=== PATIENT | female | born 1945 | race Caucasian/White ===

== ENCOUNTER 2021-08-03 15:23 | Emergency (ER) | payer MEDICARE ==
[2021-08-03 15:36] VITALS: BP 164/90
--- NOTE | 2021-08-03 17:53 | Emergency Department Report ---
ED General Adult HPI - General Chief complaint: Pain General Stated complaint: PAIN ALL OVER BODY Time Seen by Provider: 08/03/21 17:13 Source: patient Mode of arrival: Stretcher Limitations: No Limitations - History of Present Illness Initial comments: Patient is 75-year-old female presents emergency room with complaints of an acute exacerbation of her chronic pain that began approximately 3 days ago. She states that she sees a pain specialist and is prescribed oxycodone. She states that the pain has been going from her bilateral shoulders and shooting down her bilateral arms and having pain shooting down her bilateral legs. She denies any fall or injury. She denies any fever, nausea, vomiting, diarrhea, numbness, weakness, speech disturbance, gait disturbance, vision changes, chest pain, shortness of breath. Patient has a past medical history of diabetes, she states that her sugars not well controlled. She denies any known history of neuropathy and states that she is not currently on any neuropathy medication. She has an allergy to penicillin. Severity scale (0 -10): 10 - Related Data Previous Rx's Medication Instructions Recorded Last Taken Type levoFLOXacin [Levaquin TAB] 500 mg PO ONCE 10 Days #10 tablet 09/20/18 Unknown Rx traMADoL [Ultram] 50 mg PO Q4HR PRN #12 tablet 09/20/18 Unknown Rx Gabapentin 100 mg PO Q8HR #21 capsule 08/03/21 Unknown Rx Allergies Allergy/AdvReac Type Severity Reaction Status Date / Time Penicillins Allergy Unknown Verified 09/19/18 23:06 ED Review of Systems ROS: Stated complaint: PAIN ALL OVER BODY Other details as noted in HPI Comment: All other systems reviewed and negative ED Past Medical Hx - Past Medical History Hx Hypertension: Yes Hx Diabetes: Yes Hx Asthma: Yes Additional medical history: CAD - Surgical History Hx Coronary Stent: Yes (X3) Additional Surgical History: Coloscopy - Social History Smoking Status: Never Smoker Substance Use Type: None - Medications Home Medications: Home Medications Medication Instructions Recorded Confirmed Last Taken Type levoFLOXacin [Levaquin TAB] 500 mg PO ONCE 10 Days #10 tablet 09/20/18 Unknown Rx traMADoL [Ultram] 50 mg PO Q4HR PRN #12 tablet 09/20/18 Unknown Rx Gabapentin 100 mg PO Q8HR #21 capsule 08/03/21 Unknown Rx ED Physical Exam - General Limitations: No Limitations General appearance: alert, in no apparent distress - Head Head exam: Present: atraumatic, normocephalic - Eye Eye exam: Present: normal appearance - ENT ENT exam: Present: mucous membranes moist - Respiratory Respiratory exam: Present: normal lung sounds bilaterally. Absent: respiratory distress, wheezes, rales, rhonchi, stridor, chest wall tenderness, accessory muscle use, decreased breath sounds, prolonged expiratory - Cardiovascular Cardiovascular Exam: Present: regular rate, normal rhythm, normal heart sounds. Absent: systolic murmur, diastolic murmur, rubs, gallop - Extremities Exam Extremities exam: Present: normal inspection, full ROM, normal capillary refill, other (neurovascularly intact with strong distal pulses). Absent: tenderness, pedal edema, joint swelling, calf tenderness - Neurological Exam Neurological exam: Present: alert, oriented X3, CN II-XII intact, normal gait. Absent: motor sensory deficit - Psychiatric Psychiatric exam: Present: normal affect, normal mood - Skin Skin exam: Present: warm, dry, intact ED Course Vital Signs 08/03/21 08/03/21 15:25 18:55 Temperature 98.5 F Pulse Rate 94 H Respiratory 16 16 Rate Blood Pressure 164/90 [Left] O2 Sat by Pulse 97 Oximetry ED Medical Decision Making - Lab Data Result diagrams: 08/03/21 17:39 08/03/21 17:39 - Medical Decision Making Patient is 75-year-old female presents emergency room with complaints of an acute exacerbation of her chronic pain that began approximately 3 days ago. She states that she sees a pain specialist and is prescribed oxycodone. She states that the pain has been going from her bilateral shoulders and shooting down her bilateral arms and having pain shooting down her bilateral legs. She denies any fall or injury. She denies any fever, nausea, vomiting, diarrhea, numbness, weakness, speech disturbance, gait disturbance, vision changes, chest pain, shortness of breath. Patient has a past medical history of diabetes, she states that her sugars not well controlled. She denies any known history of neuro brendon and states that she is not currently on any neuropathy medication. She has an allergy to penicillin. Vitals are stable. Patient has no joint swelling, no skin changes, neurovascularly intact. There are no signs of any infection or septic joint. Labs show evidence of CKD, baseline labs in 2018 she already had evidence of CKD, it is likely worsening, patient will be referred to nephrology. Labs also show hyperglycemia with blood glucose of 253, discussed the importance of outpatient primary care follow-up for better glycemic control. Symptoms could likely be related to neuropathy. Patient given medications on the emergency room with improvement of her symptoms. Patient given short course of gabapentin. Discussed the importance of outpatient follow-up. Discussed return precautions. Advised patient Please take medication as prescribed. Follow-up with your primary care doctor. Follow-up with your pain specialist. Follow-up with your mandarin speaking nanny. Return to emergency room for any new or worsening symptoms. Critical care attestation.: If time is entered above; I have spent that time in minutes in the direct care of this critically ill patient, excluding procedure time. ED Disposition Clinical Impression: Generalized pain, Hyperglycemia CKD (chronic kidney disease) Qualifiers: Chronic kidney disease stage: unspecified stage Qualified Code(s): N18.9 - Chronic kidney disease, unspecified Disposition: 01 HOME / SELF CARE / HOMELESS Is pt being admited?: No Does the pt Need Aspirin: No Condition: Stable Instructions: Diabetic Neuropathy Additional Instructions: Please take medication as prescribed. Follow-up with your primary care doctor. Follow-up with your pain specialist. Follow-up with your mandarin speaking nanny. Return to emergency room for any new or worsening symptoms. Prescriptions: Gabapentin 100 mg PO Q8HR #21 capsule Referrals: PRIMARY CARE, [Primary Care Provider] - 2-3 Days your, pain specialist [Other] - 2-3 Days TOMMY BILLINGS MD [Staff Physician] - 2-3 Days Time of Disposition: 19:38 Print Language: COLOMBIAN
[2021-08-03 18:03] LABS: Basophils # (Auto) 0.1 K/mm3 (0.0-0.1); Basophils % (Auto) 0.9 % (0.0-1.8); Eosinophils # (Auto) 0.2 K/mm3 (0.0-0.4); Hematocrit 40.7 % (30.3-42.9); Hemoglobin 12.7 gm/dl (10.1-14.3); Lymphocytes # (Auto) 2.8 K/mm3 (1.2-5.4); Lymphocytes % (Auto) 24.1 % (13.4-35.0); Mean Corpuscular HGB Conc 31 % (30-34); Mean Corpuscular Volume 71 fl (79-97); Monocytes # (Auto) 0.9 K/mm3 (0.0-0.8); Monocytes % (Auto) 7.5 % (0.0-7.3); Platelet Count 193 K/mm3 (140-440); Red Blood Count 5.77 M/mm3 (3.65-5.03); Red Cell Distribution Width 17.3 % (13.2-15.2)
[2021-08-03 18:29] LABS: Albumin 3.9 g/dL (3.9-5); Calcium 9.8 mg/dL (8.4-10.2)
[2021-08-03] MEDS ORDERED: GABAPENTIN 100 MG CAP PO ONE (18:33)
[2021-08-03] MEDS ORDERED: oxyCODONE /ACETAMINOPHEN 5-325MG TAB PO ONE (18:33)
== END 2021-08-03 23:30 | disposition home or self-care (01) ==
LOC: ED 15:23
DX: E11.65 Type 2 diabetes mellitus with hyperglycemia (principal); I12.9 Hypertensive chronic kidney disease with stage 1 through stage 4 chronic kidney disease, or unspecified chronic kidney disease; E11.22 Type 2 diabetes mellitus with diabetic chronic kidney disease; N18.9 Chronic kidney disease, unspecified; I10 Essential (primary) hypertension; J45.909 Unspecified asthma, uncomplicated; Z88.0 Allergy status to penicillin; Z79.899 Other long term (current) drug therapy
CPT/HCPCS: 36415; 80053; 82805; 85025; 99283

== ENCOUNTER 2021-08-13 15:43 | Emergency (ER) | payer MEDICARE ==
[2021-08-13] MEDS ORDERED: HYDROmorphone 1 MG/1 ML INJ IV ONE ×2 (16:44→19:02)
[2021-08-13] MEDS ORDERED: ONDANSETRON 4 MG/2 ML INJ IV ONE (16:44)
--- NOTE | 2021-08-13 16:53 | Emergency Department Report ---
HPI - General Chief Complaint: Pain General Time Seen by Provider: 08/13/21 16:19 - HPI HPI: This is a 76-year-old female presents to the emergency department with a complaint of generalized pain for the past 4 to 5 days. She has a past medical history of coronary artery disease, pulmonary hypertension, major depressive disorder, homocystinemia, diabetes, peripheral neuropathy, peripheral vascular disease, chronic kidney disease stage III. Patient also appears to have issues with chronic pain. Patient does follow with a pain specialist whom she c ontacted and was told to continue with gabapentin, but the patient says that it is not working. The patient also takes oxycodone 10 mg up to 4 times per day. She denies any fever, shortness of breath, lower extremity swelling, nausea, vomiting. Overall the patient says "I just do not feel well." ED Past Medical Hx - Past Medical History Hx Hypertension: Yes Hx Diabetes: Yes Hx Asthma: Yes Additional medical history: CAD - Surgical History Hx Coronary Stent: Yes (X3) Additional Surgical History: Coloscopy - Social History Smoking Status: Never Smoker Substance Use Type: None - Medications Home Medications: Home Medications Medication Instructions Recorded Confirmed Last Taken Type levoFLOXacin [Levaquin TAB] 500 mg PO ONCE 10 Days #10 tablet 09/20/18 Unknown Rx traMADoL [Ultram] 50 mg PO Q4HR PRN #12 tablet 09/20/18 Unknown Rx Gabapentin 100 mg PO Q8HR #21 capsule 08/03/21 Unknown Rx ED Review of Systems ROS: Stated complaint: BODY PAIN Other details as noted in HPI Comment: All other systems reviewed and negative Constitutional: denies: chills, fever Eyes: denies: eye pain, vision change ENT: denies: ear pain, throat pain Respiratory: denies: cough, shortness of breath Cardiovascular: denies: chest pain, palpitations Gastrointestinal: denies: abdominal pain, vomiting Genitourinary: denies: dysuria, discharge Musculoskeletal: back pain, myalgia. denies: joint swelling Skin: denies: rash, lesions Neurological: denies: headache, weakness Physical Exam - Physical Exam Vital Signs: Vital Signs 08/13/21 15:50 Temperature 97.9 F Pulse Rate 72 Respiratory 18 Rate Blood Pressure 176/91 [Left] O2 Sat by Pulse 98 Oximetry Physical Exam: GENERAL: The patient is well-developed well-nourished. HENT: Normocephalic. Atraumatic. Patient has moist mucous membranes. EYES: Extraocular motions are intact. NECK: Supple. Trachea is midline. CHEST/LUNGS: Clear to auscultation. There is no respiratory distress noted. HEART/CARDIOVASCULAR: Regular. There is no tachycardia. There is no murmur. ABDOMEN: Abdomen is soft, nontender. Patient has normal bowel sounds. SKIN: Skin is warm and dry. NEURO: The patient is awake, alert, and oriented. The patient is cooperative. The patient has no focal neurologic deficits. Normal speech. MUSCULOSKELETAL: There is tenderness to palpation along all extremities but no obvious deformity. There is no limitation range of motion. BACK: No midline thoracic or lumbar tenderness to palpation. There is reproducible lumbar and thoracic paraspinal tenderness to palpation bilaterally. ED Course Vital Signs 08/13/21 15:50 Temperature 97.9 F Pulse Rate 72 Respiratory 18 Rate Blood Pressure 176/91 [Left] O2 Sat by Pulse 98 Oximetry ED Medical Decision Making - Lab Data Result diagrams: 08/13/21 17:04 08/13/21 17:04 Lab Results 08/13/21 08/13/21 Range/Units 17:04 17:04 WBC 8.2 (4.5-11.0) K/mm3 RBC 5.57 H (3.65-5.03) M/mm3 Hgb 12.4 (10.1-14.3) gm/dl Hct 40.1 (30.3-42.9) % MCV 72 L (79-97) fl MCH 22 L (28-32) pg MCHC 31 (30-34) % RDW 17.6 H (13.2-15.2) % Plt Count 195 (140-440) K/mm3 Lymph % (Auto) 24.9 (13.4-35.0) % Pope % (Auto) 7.6 H (0.0-7.3) % Eos % (Auto) 1.6 (0.0-4.3) % Baso % (Auto) 0.6 (0.0-1.8) % Lymph # (Auto) 2.0 (1.2-5.4) K/mm3 Pope # (Auto) 0.6 (0.0-0.8) K/mm3 Eos # (Auto) 0.1 (0.0-0.4) K/mm3 Baso # (Auto) 0.0 (0.0-0.1) K/mm3 Seg Neutrophils % 65.3 (40.0-70.0) % Seg Neutrophils # 5.4 (1.8-7.7) K/mm3 Sodium 140 (137-145) mmol/L Potassium 4.2 (3.6-5.0) mmol/L Chloride 106.7 (98-107) mmol/L Carbon Dioxide 22 (22-30) mmol/L Anion Gap 16 mmol/L BUN 24 H (7-17) mg/dL Creatinine 1.0 (0.6-1.2) mg/dL Estimated GFR 54 ml/min BUN/Creatinine Ratio 24 % Glucose 197 H (65-100) mg/dL Calcium 9.8 (8.4-10.2) mg/dL Total Bilirubin 0.30 (0.1-1.2) mg/dL AST 18 (5-40) units/L ALT 14 (7-56) units/L Alkaline Phosphatase 101 (35-129) units/L Total Creatine Kinase 339 H (30-135) units/L Total Protein 6.7 (6.3-8.2) g/dL Albumin 3.6 L (3.9-5) g/dL Albumin/Globulin Ratio 1.2 % - Medical Decision Making This patient presents to the emergency department with a complaint of generalized pain that is refractory to her home medications which includes gabapentin and Percocet. Heart and lung sounds are normal to auscultation. The patient does not appear in any respiratory or acute distress. There is some reproducible pain along the extremities and along the back but no obvious deformities. Labs have been mostly unremarkable including CBC, metabolic panel, normal thyroid function, no evidence of rhabdomyolysis. There is some mild renal insufficiency which is greatly improved from the previously diagnosed CKD stage III. Patient was given 2 doses of IV analgesia with some improvement. The patient has good outpatient follow-up with primary care and is being seen by a pain management physician and on gabapentin and oxycodone. The patient was ambulatory in the emergency department and both appears and feels stable. Vital signs reassuring including being afebrile. She will follow up with her physicians outpatient and will return to the ER with any worsening of her symptoms or with any acute distress. Critical Care Time: No Critical care attestation.: If time is entered above; I have spent that time in minutes in the direct care of this critically ill patient, excluding procedure time. ED Disposition Clinical Impression: Generalized pain, Hypertension, Renal insufficiency, mild Disposition: 01 HOME / SELF CARE / HOMELESS Is pt being admited?: No Condition: Stable Instructions: Peripheral Neuropathy, Musculoskeletal Pain, Hypertension, Adult, Hypertension (ED) Additional Instructions: Please follow-up with your primary care physician and pain management physician in the next few days. Take all medications as prescribed. Try to stay away from foods that are high in salt and caffeinated products. Keep a blood pressure log. Return to the emergency department with any worsening of your symptoms, new or concerning symptoms not addressed during this current emergency department vi sit, or with any acute distress. Referrals: ADELINA BOWLES MD [Primary Care Provider] - 2-3 Days Time of Disposition: 20:06
[2021-08-13 17:20] LABS: Basophils % (Auto) 0.6 % (0.0-1.8); Eosinophils # (Auto) 0.1 K/mm3 (0.0-0.4); Eosinophils % (Auto) 1.6 % (0.0-4.3); Hematocrit 40.1 % (30.3-42.9); Hemoglobin 12.4 gm/dl (10.1-14.3); Lymphocytes % (Auto) 24.9 % (13.4-35.0); Mean Corpuscular HGB Conc 31 % (30-34); Mean Corpuscular Volume 72 fl (79-97); Monocytes # (Auto) 0.6 K/mm3 (0.0-0.8); Monocytes % (Auto) 7.6 % (0.0-7.3); Platelet Count 195 K/mm3 (140-440); Red Blood Count 5.57 M/mm3 (3.65-5.03); Red Cell Distribution Width 17.6 % (13.2-15.2)
[2021-08-13 17:38] LABS: Albumin 3.6 g/dL (3.9-5); Calcium 9.8 mg/dL (8.4-10.2)
[2021-08-13 20:24] VITALS: BP 114/47
== END 2021-08-13 20:15 | disposition home or self-care (01) ==
LOC: ED 15:43
DX: M79.18 Myalgia, other site (principal); I10 Essential (primary) hypertension; E11.9 Type 2 diabetes mellitus without complications; I25.10 Atherosclerotic heart disease of native coronary artery without angina pectoris; N28.9 Disorder of kidney and ureter, unspecified
CPT/HCPCS: 36415; 80053; 82550; 85025; 96374; 96375; 96376; 99284; J1170; J2405

== ENCOUNTER 2022-05-19 21:09 | Inpatient (IN) | payer MEDICARE ==
[2022-05-19] MEDS ORDERED: NITROGLYCERIN 0.4 MG TAB SUBL SL ONE (22:12)
[2022-05-19] MEDS ORDERED: ONDANSETRON 4 MG/2 ML INJ IV ONE (22:13)
[2022-05-19] MEDS ORDERED: MORPHINE 4 MG/1 ML INJ IV ONE (22:13)
[2022-05-19] MEDS ORDERED: PANTOPRAZOLE 40 MG INJ IV ONE (22:13)
--- NOTE | 2022-05-19 22:22 | Emergency Department Report ---
ED Chest Pain HPI - General Chief Complaint: Chest Pain Stated Complaint: CHEST PAIN Time Seen by Provider: 05/19/22 22:10 Source: patient, EMS (Verbal report received from emergency medical services. EMS documentation not available at time of chart dictation ), RN notes reviewed Mode of arrival: Stretcher Limitations: No Limitations - History of Present Illness Initial Comments: The patient was evaluated in the emergency department for symptoms described in the history of present illness. He/she was evaluated in the context of the global COVID-19 pandemic, which necessitated consideration that the patient might be at risk for infection with the virus that causes COVID-19. Institutional protocols and algorithms that pertain to the evaluation of patients at risk for COVID-19 are in a state of rapid change based on information released by regulatory bodies including the CDC and federal and state organizations. These policies and algorithms were followed during the patient's care in the emergency department. Please note that these policies, procedures and recommendations changed on a rapid basis. This is a pleasant and cooperative 76-year-old female, with a history of diabetes, hypertension, coronary artery disease and multiple stents. She is brought to the hospital by emergency medical services. The patient complains of central chest pain and simultaneous back pain. She denies vomiting and diaphoresis. She denies exertional shortness of breath. She denies travel, surgery, immobilization, DVT and pulmonary embolism risk factors. EMS reports that patient is hypertensive in the field. They report her initial blood pres sure exceeded 200 mmHg systolic. EMS also reports that they gave aspirin nitroglycerin in the field, with improvement in symptoms, and improvement in blood pressure, repeat blood pressure 130 mmHg systolic. Patient still has mild smoldering chest pain at this time. Her last stress test was in 2016. 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 Complaint: chest pain -: Sudden Onset: during rest Pain Location: substernal, left chest Pain Radiation: back Severity: moderate Quality: aching Consistency: intermittent Improves With: nitroglycerin, medication-other Worsens With: nothing Aspirin use within the Past 7 Days: (1) Yes - Related Data On Oral Contraceptives: No Previous Rx's Medication Instructions Recorded Last Taken Type levoFLOXacin [Levaquin TAB] 500 mg PO ONCE 10 Days #10 tablet 09/20/18 Unknown Rx traMADoL [Ultram] 50 mg PO Q4HR PRN #12 tablet 09/20/18 Unknown Rx Gabapentin 100 mg PO Q8HR #21 capsule 08/03/21 Unknown Rx Allergies Allergy/AdvReac Type Severity Reaction Status Date / Time Penicillins Allergy Unknown Verified 09/19/18 23:06 Heart Score - HEART Score History: Moderately suspicious EKG: Non-specific Age: > 65 Risk factors: > 3 risk factors or hx of atherosclerotic disease Troponin: 1-3x normal limit HEART Score: 7 - EKG Read Time Time EKG Completed: 22:57 EKG Read Time: 23:00 - Critical Actions Critical Actions: >7 pts:50-65% risk of adverse cardiac event. Early invasive measures ED Review of Systems ROS: Stated complaint: CHEST PAIN Other details as noted in HPI Constitutional: denies: fever Eyes: denies: eye discharge ENT: denies: epistaxis Respiratory: denies: cough Cardiovascular: chest pain Gastrointestinal: denies: abdominal pain, hematemesis, melena, hematochezia Musculoskeletal: back pain Psychiatric: anxiety Hematological/Lymphatic: denies: easy bleeding ED Past Medical Hx - Past Medical History Hx Hypertension: Yes Hx Diabetes: Yes Hx Asthma: Yes Additional medical history: CAD - Surgical History Hx Coronary Stent: Yes (X3) Additional Surgical History: Coloscopy - Social History Smoking Status: Never Smoker Substance Use Type: None - Medications Home Medications: Home Medications Medication Instructions Recorded Confirmed Last Taken Type levoFLOXacin [Levaquin TAB] 500 mg PO ONCE 10 Days #10 tablet 09/20/18 Unknown Rx traMADoL [Ultram] 50 mg PO Q4HR PRN #12 tablet 09/20/18 Unknown Rx Gabapentin 100 mg PO Q8HR #21 capsule 08/03/21 Unknown Rx ED Physical Exam - General Limitations: No Limitations General appearance: alert, obese - Head Head exam: Present: atraumatic, normocephalic - Eye Eye exam: Present: normal appearance, EOMI. Absent: nystagmus - ENT ENT exam: Present: normal exam, normal orophraynx, mucous membranes moist, normal external ear exam - Neck Neck exam: Present: normal inspection, full ROM. Absent: tenderness, meningismus - Respiratory Respiratory exam: Present: normal lung sounds bilaterally, chest wall tenderness. Absent: respiratory distress, wheezes, rales, rhonchi, stridor - Cardiovascular Cardiovascular Exam: Present: regular rate, normal rhythm, normal heart sounds. Absent: bradycardia, tachycardia, irregular rhythm, systolic murmur, diastolic murmur, rubs, gallop - GI/Abdominal GI/Abdominal exam: Present: soft. Absent: distended, tenderness, guarding, rebound, rigid, pulsatile mass - Extremities Exam Extremities exam: Present: normal inspection, full ROM, other (2+ pulses noted in the bilateral upper and lower extremities. There is no palpable cord. negative Homans sign. Muscular compartments are soft. The pelvis is stable.). Absent: joint swelling, calf tenderness - Back Exam Back exam: Present: normal inspection, muscle spasm. Absent: tenderness, CVA tenderness (R), paraspinal tenderness, vertebral tenderness - Neurological Exam Neurological exam: Present: alert, oriented X3, other (No facial droop. Tongue midline. Extraocular movements intact bilaterally. Facial sensation intact to light touch in V1, V2, V3 distribution bilaterally. 5 and a 5 strength in 4 extremities. Sensation intact to light touch in 4 extremities.) - Psychiatric Psychiatric exam: Present: normal affect, normal mood - Skin Skin exam: Present: warm, dry, intact, normal color. Absent: rash ED Course Vital Signs 05/19/22 05/19/22 21:09 22:25 Temperature 98 F Pulse Rate 90 88 Respiratory 18 18 Rate Blood Pressure 131/68 136/78 [Left] O2 Sat by Pulse 100 100 Oximetry - Reevaluation(s) Reevaluation #1: 05/19/22 22:26 Differential diagnosis, including but not limited to: GERD, gastritis, hiatal hernia, pneumonia, costochondritis, acute coronary syndrome, pulmonary embolism Assessment and plan: 76-year-old female, who is moderate to high risk by heart score for major adverse cardiac event, with acute chest pain and simultaneous back pain, which is now improved. Blood pressure currently 130s, patient still has mild pain. Prehospital EKG not consistent with STEMI. I have verbally ordered EMS to administer 2 mg of morphine to patient for pain control. Request appropriate laboratory studies, ER EKG, x-ray of the chest, D-dimer, and CT angiogram chest. Reassess after initial data points. We will recommend admission to the medical service for acute chest pain and accelerated cardiac risk stratification. I discussed this plan of care with the patient. She is agreeable to the plan of care. 05/20/22 01:14 Laboratory studies reviewed and appreciated. Blood pressure acceptable. Patient reports that she is 265 pounds, this translates to 120 kg. CTA chest grossly negative for PE. Not currently tachycardic, tachypneic or hypoxic. Do not have high suspicion for pulmonary embolism at this time. No contraindications to Lovenox for systemic anticoagulation. Discussed this with the patient. She articulates understanding. Hospital physician, Dr. Renner to admit to [facility] CÉSAR score - César Score Age > 65: (1) Yes Aspirin use within the Past 7 Days: (1) Yes 3 or more CAD Risk Factors: (1) Yes 2 or more Angina events in past 24 hrs: (1) Yes Known CAD with more than 50% Stenosis: (1) Yes Elevated Cardiac Markers: (1) Yes ST Deviation Greater than 0.5mm: (0) No CÉSAR Score: 6 ED Medical Decision Making - Lab Data Result diagrams: 05/19/22 22:23 05/19/22 22:23 Vital Signs 05/19/22 05/19/22 21:09 22:25 Temperature 98 F Pulse Rate 90 88 Respiratory 18 18 Rate Blood Pressure 131/68 136/78 [Left] O2 Sat by Pulse 100 100 Oximetry Lab Results 05/19/22 05/19/22 05/19/22 Range/Units 22:23 22:23 22:23 WBC 10.7 (4.5-11.0) K/mm3 RBC 5.86 H (3.65-5.03) M/mm3 Hgb 13.1 (10.1-14.3) gm/dl Hct 41.5 (30.3-42.9) % MCV 71 L (79-97) fl MCH 22 L (28-32) pg MCHC 32 (30-34) % RDW 16.5 H (13.2-15.2) % Plt Count 259 (140-440) K/mm3 Lymph % (Auto) 17.0 (13.4-35.0) % [place] % (Auto) 7.2 (0.0-7.3) % Eos % (Auto) 1.9 (0.0-4.3) % Baso % (Auto) 2.3 H (0.0-1.8) % Lymph # (Auto) 1.8 (1.2-5.4) K/mm3 [place] # (Auto) 0.8 (0.0-0.8) K/mm3 Eos # (Auto) 0.2 (0.0-0.4) K/mm3 Baso # (Auto) 0.2 H (0.0-0.1) K/mm3 Seg Neutrophils % 71.6 H (40.0-70.0) % Seg Neutrophils # 7.7 (1.8-7.7) K/mm3 PT 13.7 (12.2-14.9) Sec. INR 0.95 (0.87-1.13) APTT 29.0 (24.2-36.6) Sec. D-Dimer 532.06 H (0-234) ng/mlDDU Sodium 142 (137-145) mmol/L Potassium 4.7 (3.6-5.0) mmol/L Chloride 101.7 (98-107) mmol/L Carbon Dioxide 31 H (22-30) mmol/L Anion Gap 14 mmol/L BUN 21 H (7-17) mg/dL Creatinine 1.2 (0.6-1.2) mg/dL Estimated GFR 44 ml/min BUN/Creatinine Ratio 18 % Glucose 210 H (65-100) mg/dL Calcium 10.4 H (8.4-10.2) mg/dL Magnesium (1.7-2.3) mg/dL Total Bilirubin 0.20 (0.1-1.2) mg/dL AST 31 (5-40) units/L ALT 45 (7-56) units/L Alkaline Phosphatase 144 H (35-129) units/L Total Creatine Kinase (30-135) units/L Troponin T 0.044 H (0.00-0.029) ng/mL Total Protein 6.6 (6.3-8.2) g/dL Albumin 4.1 (3.9-5) g/dL Albumin/Globulin Ratio 1.6 % Triglycerides 153 H (2-149) mg/dL Cholesterol 230 H (50-199) mg/dL LDL Cholesterol Direct 157 H (50-130) mg/dL HDL Cholesterol 45 (40-59) mg/dL Cholesterol/HDL Ratio 5.11 % // Range/Units 22:23 WBC (4.5-11.0) K/mm3 RBC (3.65-5.03) M/mm3 Hgb (10.1-14.3) gm/dl Hct (30.3-42.9) % MCV (79-97) fl MCH (28-32) pg MCHC (30-34) % RDW (13.2-15.2) % Plt Count (140-440) K/mm3 Lymph % (Auto) (13.4-35.0) % [place] % (Auto) (0.0-7.3) % Eos % (Auto) (0.0-4.3) % Baso % (Auto) (0.0-1.8) % Lymph # (Auto) (1.2-5.4) K/mm3 [place] # (Auto) (0.0-0.8) K/mm3 Eos # (Auto) (0.0-0.4) K/mm3 Baso # (Auto) (0.0-0.1) K/mm3 Seg Neutrophils % (40.0-70.0) % Seg Neutrophils # (1.8-7.7) K/mm3 PT (12.2-14.9) Sec. INR (0.87-1.13) APTT (24.2-36.6) Sec. D-Dimer (0-234) ng/mlDDU Sodium (137-145) mmol/L Potassium (3.6-5.0) mmol/L Chloride (98-107) mmol/L Carbon Dioxide (22-30) mmol/L Anion Gap mmol/L BUN (7-17) mg/dL Creatinine (0.6-1.2) mg/dL Estimated GFR ml/min BUN/Creatinine Ratio % Glucose (65-100) mg/dL Calcium (8.4-10.2) mg/dL Magnesium 1.90 (1.7-2.3) mg/dL Total Bilirubin (0.1-1.2) mg/dL AST (5-40) units/L ALT (7-56) units/L Alkaline Phosphatase (35-129) units/L Total Creatine Kinase 108 (30-135) units/L Troponin T (0.00-0.029) ng/mL Total Protein (6.3-8.2) g/dL Albumin (3.9-5) g/dL Albumin/Globulin Ratio % Triglycerides (2-149) mg/dL Cholesterol (50-199) mg/dL LDL Cholesterol Direct (50-130) mg/dL HDL Cholesterol (40-59) mg/dL Cholesterol/HDL Ratio % - EKG Data -: EKG Interpreted by Me EKG shows normal: sinus rhythm Rate: normal - EKG Data 05/19/22 22:26 Prehospital EKG is interpreted by myself at 22: 26 This is a sinus rhythm, with a rate of approximately 85 bpm. Leftward axis deviation, left anterior fascicular block, motion artifact, QTC 3 8 9 ms. This is an abnormal EKG. This is not a STEMI. 05/19/22 23:36 The ER EKG is interpreted at 23: 00 Sinus rhythm, with a rate of 71 bpm. Left axis deviation, left anterior fascicular block, motion artifact, QTC 42 ms, and normal P wave axis. This is an abnormal EKG. This is not a STEMI. - Radiology Data Radiology results: pending, report reviewed, image reviewed CHEST 2 VIEWS INDICATION / CLINICAL INFORMATION: Chest Pain. FINDINGS: SUPPORT DEVICES: None. HEART / MEDIASTINUM: No significant abnormality. LUNGS / PLEURA: No significant pulmonary or pleural abnormality. No pneumothorax. ADDITIONAL FINDINGS: No significant additional findings. IMPRESSION: 1. No acute findings. Signer Name: Parker Cha MD Signed: 05/19/2022 9:51 PM Workstation Name: [email or web address] CTA CHEST WITH IV CONTRAST INDICATION: Acute chest pain and back pain. TECHNIQUE: Axial CT images were obtained through the chest after injection of 80 mL Omnipaque 350 IV contrast. 3 plane MIP reconstructions were produced. All CT scans at this location are performed using CT dose reduction for ALARA by means of automated exposure control. COMPARISON: None available. FINDINGS: PULMONARY ARTERIES: Technique for detection is limited given the degree of respiratory motion artifact. No obvious pulmonary thromboembolus is identified.. AORTA AND ARTERIES: Mild atherosclerotic disease of the descending thoracic aorta. MEDIASTINUM: Mild cardiomegaly. LUNGS: No suspicious consolidation, nodule or mass. No pneumothorax or pleural effusion. Coronary artery calcification: Severe. UPPER ABDOMEN: Cholelithiasis.. Fatty liver. BONES: No significant osseous abnormality. IMPRESSION: 1. No CT evidence for pulmonary embolism. 2. No acute findings. Signer Name: Parker Cha MD Signed: 05/20/2022 12:04 AM Workstation Name: [facility] Critical care attestation.: If time is entered above; I have spent that time in minutes in the direct care of this critically ill patient, excluding procedure time. ED Disposition Clinical Impression: Acute chest pain Disposition: 09 ADMITTED INPATIENT Is pt being admited?: Yes Does the pt Need Aspirin: No (Aspirin given by EMS) Condition: Good Instructions: Chest Pain (ED)
--- NOTE | 2022-05-19 22:56 | XRay Report ---
CHEST 2 VIEWS INDICATION / CLINICAL INFORMATION: Chest Pain. FINDINGS: SUPPORT DEVICES: None. HEART / MEDIASTINUM: No significant abnormality. LUNGS / PLEURA: No significant pulmonary or pleural abnormality. No pneumothorax. ADDITIONAL FINDINGS: No significant additional findings. IMPRESSION: 1. No acute findings. Signer Name: Parker Cha MD Signed: 05/19/2022 10:51 PM Workstation Name: [id number]
[2022-05-19 23:03] LABS: Basophils # (Auto) 0.2 K/mm3 (0.0-0.1); Basophils % (Auto) 2.3 % (0.0-1.8); Eosinophils # (Auto) 0.2 K/mm3 (0.0-0.4); Eosinophils % (Auto) 1.9 % (0.0-4.3); Hematocrit 41.5 % (30.3-42.9); Hemoglobin 13.1 gm/dl (10.1-14.3); Lymphocytes # (Auto) 1.8 K/mm3 (1.2-5.4); Mean Corpuscular HGB Conc 32 % (30-34); Mean Corpuscular Volume 71 fl (79-97); Monocytes # (Auto) 0.8 K/mm3 (0.0-0.8); Monocytes % (Auto) 7.2 % (0.0-7.3); Platelet Count 259 K/mm3 (140-440); Red Blood Count 5.86 M/mm3 (3.65-5.03); Red Cell Distribution Width 16.5 % (13.2-15.2)
[2022-05-19 23:11] LABS: INR 0.95 (0.87-1.13)
[2022-05-19 23:32] LABS: Albumin 4.1 g/dL (3.9-5); Calcium 10.4 mg/dL (8.4-10.2)
[2022-05-20 00:56] LABS: Chol/HDL Ratio 5.11 %
--- NOTE | 2022-05-20 01:08 | Cat Scan Report ---
CTA CHEST WITH IV CONTRAST INDICATION: Acute chest pain and back pain. TECHNIQUE: Axial CT images were obtained through the chest after injection of 80 mL Omnipaque 350 IV contrast. 3 plane MIP reconstructions were produced. All CT scans at this location are performed using CT dose r eduction for ALARA by means of automated exposure control. COMPARISON: None available. FINDINGS: PULMONARY ARTERIES: Technique for detection is limited given the degree of respiratory motion artifac t. No obvious pulmonary thromboembolus is identified.. AORTA AND ARTERIES: Mild atherosclerotic disease of the descending thoracic aorta. MEDIASTINUM: Mild cardiomegaly. LUNGS: No suspicious consolidation, nodule or mass. No pneumothorax or pleural effusion. Coronary artery calcification: Severe. UPPER ABDOMEN: Cholelithiasis.. Fatty liver. BONES: No significant osseous abnormality. IMPRESSION: 1. No CT evidence for pulmonary embolism. 2. No acute findings. Signer Name: Parker Cha MD Signed: 05/20/2022 1:04 AM Workstation Name: [email or web address]
[2022-05-20] MEDS ORDERED: ENOXAPARIN 100 MG/1 ML INJ SUB-Q STA (01:12)
[2022-05-20] MEDS ORDERED: ONDANSETRON 4 MG/2 ML INJ IV PRN (01:15)
[2022-05-20] MEDS ORDERED: ACETAMINOPHEN 325 MG TAB PO PRN ×2 (01:15→03:29)
[2022-05-20] MEDS ORDERED: DEXTROSE 50% IN WATER (25GM) 50 ML SYRINGE IV PRN (03:29)
[2022-05-20] MEDS ORDERED: NITROGLYCERIN 0.4 MG TAB SUBL SL PRN (03:29)
[2022-05-20] MEDS ORDERED: SODIUM CHLORIDE 0.9% 1000 ML 1,000 ML IV SCH (03:30)
--- NOTE | 2022-05-20 03:38 | History and Physical Report ---
History of Present Illness Date of examination: 05/20/22 Date of admission: 05/20/22 01:15 Chief complaint: Chest pain History of present illness: 76-year-old female with history of diabetes, hypertension, coronary artery disease and multiple stents was brought to the emergency room because of central chest pain and simultaneous back pain. She denies vomiting and diaphoresis. She denies exertional shortness of breath. She denies travel, surgery, immobilization, DVT and pulmonary embolism risk factors. EMS reports that patient is hypertensive in the field. They report her initial blood pressure exceeded 200 mmHg systolic. EMS also reports that they gave aspirin nitroglycerin in the field, with improvement in symptoms, and improvement in blood pressure, repeat blood pressure 130 mmHg systolic. Patient still has mild smoldering chest pain at this time. Her last stress test was in 2015. 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 In the emergency room patient troponin is 0.044 and second troponin is 0.167. She will going to admit the patient we will put the patient on chest pain pathway, [facility] and consult cardiology Past History Past Medical History: acute [place], diabetes, hypertension, other (Multiple stent, asthma) Past Surgical History: Other (Multiple coronary stent, colonoscopy) Social history: no significant social history Family history: diabetes, hypertension Medications and Allergies Allergies Allergy/AdvReac Type Severity Reaction Status Date / Time Penicillins Allergy Unknown Verified 09/19/18 23:06 Home Medications Medication Instructions Recorded Confirmed Last Taken Type levoFLOXacin [Levaquin TAB] 500 mg PO ONCE 10 Days #10 tablet 09/20/18 Unknown Rx traMADoL [Ultram] 50 mg PO Q4HR PRN #12 tablet 09/20/18 Unknown Rx Gabapentin 100 mg PO Q8HR #21 capsule 08/03/21 Unknown Rx Active Meds: Active Medications Acetaminophen (Acetaminophen 325 Mg Tab) 650 mg PO Q4H PRN PRN Reason: Pain MILD(1-3)/Fever >100.5/LEÓN Morphine Sulfate (Morphine 2 Mg/1 Ml Inj) 2 mg IV Q4H PRN PRN Reason: Pain, Moderate (4-6) Ondansetron HCl (Ondansetron 4 Mg/2 Ml Inj) 4 mg IV Q8H PRN PRN Reason: Nausea And Vomiting Sodium Chloride (Sodium Chloride 0.9% 10 Ml Flush Syringe) 10 ml IV BID LEATHA Sodium Chloride (Sodium Chloride 0.9% 10 Ml Flush Syringe) 10 ml IV PRN PRN PRN Reason: LINE FLUSH Last Admin: 05/19/22 22:15 Dose: 10 ml Review of Systems All systems: negative Cardiovascular: chest pain, shortness of breath, dyspnea on exertion Respiratory: shortness of breath, dyspnea on exertion Exam - Constitutional Vitals: Temp Pulse Resp BP Pulse Ox 98 F 68 18 133/68 100 05/19/22 21:09 05/20/22 02:58 05/19/22 22:25 05/20/22 02:58 05/19/22 22:25 General appearance: Present: no acute distress, well-nourished - EENT Eyes: Present: PERRL ENT: hearing intact, clear oral mucosa - Neck Neck: Present: supple, normal ROM - Respiratory Respiratory effort: normal Respiratory: bilateral: CTA - Cardiovascular Heart Sounds: Present: S1 & S2. Absent: rub, click - Extremities Extremities: pulses symmetrical, No edema Peripheral Pulses: within normal limits - Abdominal General gastrointestinal: Present: soft, non-tender, non-distended, normal bowel sounds Female genitourinary: Present: normal - Integumentary Integumentary: Present: clear, warm, dry - Musculoskeletal Musculoskeletal: gait normal, strength equal bilaterally - Psychiatric Psychiatric: appropriate mood/affect, intact judgment & insight - Neurologic Neurologic: CNII-XII intact, moves all extremities HEART Score - HEART Score EKG: Non-specific Age: > 65 Risk factors: > 3 risk factors or hx of atherosclerotic disease Troponin: Troponin T 0.167 ng/mL (0.00-0.029) H* D 05/20/22 01:37 Troponin: 1-3x normal limit - Critical Actions Critical Actions: >7 pts:50-65% risk of adverse cardiac event. Early invasive measures Results - Labs CBC & Chem 7: 05/19/22 22:23 05/19/22 22:23 Labs: Laboratory Last Values WBC 10.7 K/mm3 (4.5-11.0) 05/19/22 22:23 RBC 5.86 M/mm3 (3.65-5.03) H 05/19/22 22:23 Hgb 13.1 gm/dl (10.1-14.3) 05/19/22 22:23 Hct 41.5 % (30.3-42.9) 05/19/22 22: MCV 71 fl (79-97) L 05/19/22 22: MCH 22 pg (28-32) L 05/19/22 22: MCHC 32 % (30-34) 05/19/22 22: RDW 16.5 % (13.2-15.2) H 05/19/22 22:23 Plt Count 259 K/mm3 (140-440) 05/19/22 22: Lymph % (Auto) 17.0 % (13.4-35.0) 05/19/22 22: [place] % (Auto) 7.2 % (0.0-7.3) 05/19/22 22: Eos % (Auto) 1.9 % (0.0-4.3) 05/19/22 22: Baso % (Auto) 2.3 % (0.0-1.8) H 05/19/22 22: Lymph # (Auto) 1.8 K/mm3 (1.2-5.4) 05/19/22 22: [place] # (Auto) 0.8 K/mm3 (0.0-0.8) 05/19/22 22: Eos # (Auto) 0.2 K/mm3 (0.0-0.4) 05/19/22 22: Baso # (Auto) 0.2 K/mm3 (0.0-0.1) H 05/19/22 22: Seg Neutrophils % 71.6 % (40.0-70.0) H 05/19/22 22: Seg Neutrophils # 7.7 K/mm3 (1.8-7.7) 05/19/22 22: PT 13.7 Sec. (12.2-14.9) 05/19/22 22: INR 0.95 (0.87-1.13) 05/19/22 22: APTT 29.0 Sec. (24.2-36.6) 05/19/22 22:23 D-Dimer 532.06 ng/mlDDU (0-234) H 05/19/22 22:23 Sodium 142 mmol/L (137-145) 05/19/22 22:23 Potassium 4.7 mmol/L (3.6-5.0) 05/19/22 22:23 Chloride 101.7 mmol/L (98-107) 05/19/22 22:23 Carbon Dioxide 31 mmol/L (22-30) H 05/19/22 22:23 Anion Gap 14 mmol/L 05/19/22 22:23 BUN 21 mg/dL (7-17) H 05/19/22 22:23 Creatinine 1.2 mg/dL (0.6-1.2) 05/19/22 22:23 Estimated GFR 44 ml/min 05/19/22 22:23 BUN/Creatinine Ratio 18 % 05/19/22 22:23 Glucose 210 mg/dL (65-100) H 05/19/22 22:23 Calcium 10.4 mg/dL (8.4-10.2) H 05/19/22 22:23 Magnesium 1.90 mg/dL (1.7-2.3) 05/19/22 22:23 Total Bilirubin 0.20 mg/dL (0.1-1.2) 05/19/22 22:23 AST 31 units/L (5-40) 05/19/22 22:23 ALT 45 units/L (7-56) 05/19/22 22:23 Alkaline Phosphatase 144 units/L (35-129) H 05/19/22 22:23 Total Creatine Kinase 108 units/L (30-135) 05/19/22 22:23 Troponin T 0.167 ng/mL (0.00-0.029) H* D 05/20/22 01:37 Total Protein 6.6 g/dL (6.3-8.2) 05/19/22 22:23 Albumin 4.1 g/dL (3.9-5) 05/19/22 22:23 Albumin/Globulin Ratio 1.6 % 05/19/22 22:23 Triglycerides 153 mg/dL (2-149) H 05/19/22 22:23 Cholesterol 230 mg/dL (50-199) H 05/19/22 22:23 LDL Cholesterol Direct 157 mg/dL (50-130) H 05/19/22 22:23 HDL Cholesterol 45 mg/dL (40-59) 05/19/22 22:23 Cholesterol/HDL Ratio 5.11 % 08/27/22 22:23 - Imaging and Cardiology Chest x-ray: report reviewed Assessment and Plan VTE prophylaxis?: Chemical Plan of care discussed with patient/family: Yes - Patient Problems (1) NSTEMI (non-ST elevated myocardial infarction) Current Visit: Yes Status: Acute Plan to address problem: Admit the patient to the medical telemetry. Aspirin 325 mg p.o. daily. Lipitor 40 mg p.o. daily. Nitroglycerin as needed. Lovenox 1 mg/kg subcu every 12 hours. Echocardiogram. Serial cardiac enzymes. Cardiology evaluation (2) Hypertension Current Visit: Yes Status: Acute Plan to address problem: Hydralazine 10 mg IV every 6 hours as needed. We continue the home medication (3) Asthma Current Visit: Yes Status: Acute Plan to address problem: Oxygen by nasal cannula 3 L/min. DuoNeb by nebulizer every 4 hours. Albuterol via nebulizer every 4 hours as needed (4) Diabetes Current Visit: Yes Status: Acute (5) Coronary artery disease due to calcified coronary lesion Current Visit: Yes Status: Acute Plan to address problem: Aspirin 325 mg p.o. daily. Lipitor 40 mg p.o. daily. Nitroglycerin as needed. Lovenox 1 mg/kg subcu every 12 hours. Echocardiogram. Serial cardiac enzymes. Cardiology evaluation (6) DVT prophylaxis Current Visit: Yes Status: Acute Plan to address problem: Lovenox 1 mg/kg subcu every 12 hours for DVT prophylaxis. Pepcid 20 mg p.o. twice daily for GI prophylaxis. Patient is a full code
[2022-05-20] MEDS ORDERED: INSULIN LISPRO 100 UNIT/ML SUB-Q SCH (06:00)
[2022-05-20] MEDS: MORPHINE 2 MG/1 ML INJ IV PRN ×2 (07:42→12:00)
[2022-05-20] MEDS ORDERED: HEPARIN 10,000 UNITS/10 ML VIAL IV PRN (08:10)
[2022-05-20] MEDS ORDERED: HEPARIN 10,000 UNITS/10 ML VIAL IV ONE ×2 (08:10→09:00)
[2022-05-20] MEDS ORDERED: HEPARIN/ 0.45% NACL DRIP 25,000 UNIT/500 ML BAG IV SCH (09:00)
[2022-05-20 09:21] LABS: INR 1.06 (0.87-1.13)
[2022-05-20 09:22] LABS: Partial Thromboplastin Time 35.1 Sec. (24.2-36.6)
--- NOTE | 2022-05-20 09:42 | Event Note ---
Date: 05/20/22 #NSTEMI Troponin 0.044--> 0.167. Continuing to trend troponins Transitioning to heparin drip. Continue aspirin 81 mg daily and Lipitor 40 mg daily. Cardiology consulted; pending recs. Pending left heart catheterization on 05/21/2022. Also pending TTE. #Hypertension - home medications: Amlodipinebenazepril 10-40 mg daily, HCTZ 50 mg daily, Aldactone 50 mg daily - current medications: Holding as patient is currently normotensive - SBP goal <160 and DBP goal <90 while inpatient - continue to monitor #Non-insulin dependent type II diabetes mellitus - hemoglobin A1c: Unknown - home regimen: Semaglutide 0.25 mg subcutaneous weekly, Farxiga 10 mg daily - current regimen: Moderate SSI - blood glucose goal 140-180 while inpatient - continue to monitor #History of coronary artery disease Continue aspirin 81 mg daily, Lipitor 40 mg daily #Mild remittent asthma Continue albuterol nebs every 4 hours as needed #Morbid obesity #Weight loss counseling #Exercise counseling - BMI 43.4 - Counseled patient on the importance of weight loss, incorporating exercise, and dietary changes (lean meats, fresh fruits and vegetables, and water intake). Patient expresses understanding. - Time: +15 min #Coordination of CARE time: 30 minutes. Total visit time equals 30 or more minutes with greater than 50% spent [id number] on coordination of care and counseling. Critical Care Billing: The high probability of a clinically significant, sudden or life threatening deterioration of the [cardiac] system(s) required my full and direct attention, intervention and personal management. The aggregate critical care time was [60] minutes. This time is in addition to time spent performing reported procedures but includes the following: [x] Data Review and interpretation [x] Patient assessment and monitoring of vital signs [x] Documentation [x] Medication orders and management
--- NOTE | 2022-05-20 09:48 | Electrocardiograph Report ---
[facility] Test Date: 2022-05-19 Test Time: 22:57:27 Pat Name: CAROLEE LOVE Department: Room: A465 1 Gender: F Foreign Correspondent: RKOKU : 1945 Requested By: MELI VINCENT Order Number: [id number] Reading MD: Oscar De Souza Measurements Intervals [place] Rate: 71 P: 32 NE: 144 QRS: -44 QRSD: 93 T: 1 QT: 389 QTc: 422 Interpretive Statements Sinus rhythm Incomplete right bundle branch Left axis deviation Possible inferior infarct of undetermined age Low voltage, precordial leads Poor R wave progression No previous ECG available for comparison Electronically Signed On 05-20-2022 9:48:32 EDT by Oscar De Souza
--- NOTE | 2022-05-20 09:52 | Electrocardiograph Report ---
[facility] Test Date: 2022-05-20 Test Time: 03:13:31 Pat Name: CAROLEE LOVE Department: Room: A465 1 Gender: F Metal Roaster: RKOKU : 1945 Requested By: MELI VINCENT Order Number: [id number] Reading MD: Oscar De Souza Measurements Intervals [place] Rate: 61 P: 49 NC: 140 QRS: -42 QRSD: 94 T: 8 QT: 411 QTc: 413 Interpretive Statements Sinus rhythm Poor R wave progression Left axis deviation Compared to ECG 05/19/2022 22:57:27 No significant change Electronically Signed On 05-20-2022 9:52:06 EDT by Oscar De Souza
[2022-05-20] MEDS ORDERED: ASPIRIN EC 325 MG TAB PO SCH ×2 (10:00)
--- NOTE | 2022-05-20 13:05 | Consultation ---
History of Present Illness Consult date: 05/20/22 Consult reason: chest pain History of present illness: She claims that while potting her plants yesterday afternoon, she developed "severe" substernal chest pressure radiating to her interscapular area. It was associated with shortness of breath. She claims that the chest pain brought her to the floor. She then activated the EMS who transported her to the ER. Since admission, she has had intermittent episodes of chest pain. Due to elevated D dimer, she had chest CTA which was negative for pulmonary embolism. Past History Past Medical History: acute AR, CAD, diabetes, hypertension, hyperlipidemia, ot her (Asthma) Past Surgical History: PTCA (Stenting) Social history: denies: smoking, alcohol abuse Family history: denies: CAD Medications and Allergies Allergies Allergy/AdvReac Type Severity Reaction Status Date / Time Penicillins Allergy Unknown Verified 09/19/18 23:06 Home Medications Medication Instructions Recorded Confirmed Last Taken Type Amlodipine Besylate/Benazepril 1 each PO DAILY 05/20/22 05/20/22 Unknown History [Amlodipine-Benazepril 10-40 mg] Dapagliflozin Propanediol [Farxiga] 10 mg PO DAILY 05/20/22 05/20/22 Unknown History Nebivolol HCl [Bystolic] 20 mg PO DAILY 05/20/22 05/20/22 Unknown History Oxycodone HCl [oxyCODONE] 10 mg PO Q6H PRN 05/20/22 05/20/22 Unknown History Pregabalin [Lyrica] 75 mg PO DAILY 05/20/22 05/20/22 Unknown History Semaglutide [Ozempic] 0.25 mg SQ QWEEK 05/20/22 05/20/22 Unknown History Spironolactone [Aldactone] 50 mg PO QDAY 05/20/22 05/20/22 Unknown History hydroCHLOROthiazide [HCTZ] 50 mg PO QDAY 05/20/22 05/20/22 Unknown History Active Meds: Active Medications Acetaminophen (Acetaminophen 325 Mg Tab) 650 mg PO Q4H PRN PRN Reason: Pain, Mild (1-3) Aspirin (Aspirin Ec 325 Mg Tab) 81 mg PO QDAY [facility] Last Admin: 05/20/22 09:38 Dose: 81 mg Atorvastatin Calcium (Atorvastatin 40 Mg Tab) 40 mg PO QHS [facility] Dextrose (Dextrose 50% In Water (25gm) 50 Ml Syringe) 50 ml IV Q30MIN PRN; Protocol PRN Reason: Hypoglycemia Heparin Sodium (Porcine) (Heparin 10,000 Units/10 Ml Vial) 4,400 unit 40 unit/kg (4400 unit) IV Q6H PRN PRN Reason: Anti-Xa Assay < 0.1 units/ml Heparin Sodium/Sodium Chloride (Heparin/ 0.45% Nacl-25,000 Unit/500 Ml) 25,000 unit in 500 mls @ 20 mls/hr IV TITRATE [facility]; Protocol Last Admin: 05/20/22 09:37 Dose: 1,000 units/hr, 20 mls/hr Insulin Human Lispro (Insulin Lispro 100 Unit/Ml) 0 unit SUB-Q ACHS [facility]; Protocol Morphine Sulfate (Morphine 2 Mg/1 Ml Inj) 2 mg IV Q4H PRN PRN Reason: Pain, Moderate (4-6) Last Admin: 05/20/22 12:00 Dose: 2 mg Nitroglycerin (Nitroglycerin 0.4 Mg Tab Subl) 0.4 mg SL .Q5MIN PRN PRN Reason: Chest Pain Ondansetron HCl (Ondansetron 4 Mg/2 Ml Inj) 4 mg IV Q8H PRN PRN Reason: Nausea And Vomiting Oxycodone HCl (Oxycodone 5 Mg Tab) 10 mg PO Q6H PRN PRN Reason: Pain, Moderate (4-6) Sodium Chloride (Sodium Chloride 0.9% 10 Ml Flush Syringe) 10 ml IV BID LEATHA Last Admin: 05/20/22 09:43 Dose: 10 ml Sodium Chloride (Sodium Chloride 0.9% 10 Ml Flush Syringe) 10 ml IV PRN PRN PRN Reason: LINE FLUSH Last Admin: 05/20/22 07:11 Dose: 10 ml Review of Systems Constitutional: no fever, no chills Ears, nose, mouth and throat: no ear pain, no ear discharge, no sore throat Cardiovascular: chest pain, shortness of breath, no orthopnea, no palpitations, no edema Respiratory: no cough, no hemoptysis Gastrointestinal: no abdominal pain, no nausea, no vomiting, no diarrhea, no constipation Genitourinary Female: no dysuria, no urinary frequency Rectal: no pain, no bleeding Musculoskeletal: no neck stiffness, no neck pain, no myalgias Integumentary: no rash, no pruritis Neurological: no weakness, no parathesias, no numbness, no headaches Endocrine: no cold intolerance, no heat intolerance Hematologic/Lymphatic: no easy bruising, no easy bleeding Allergic/Immunologic: no urticaria, no angioedema Physical Examination Vital Signs Last Vital Signs Temp 98.1 F 05/20/22 05:21 Pulse 64 05/20/22 05:21 Resp 20 05/20/22 05:21 BP 145/73 05/20/22 05:21 Pulse Ox 99 05/20/22 08:03 General appearance: no acute distress HEENT: Positive: EOMI, Normocephaly, Mucus Membranes Moist Neck: Positive: neck supple, trachea midline Cardiac: Positive: Reg Rate and Rhythm, S1/S2 Lungs: Positive: clear to auscultation Neuro: Positive: Grossly Intact Abdomen: Positive: Soft, Active Bowel Sounds. Negative: Tender Skin: Positive: Clear. Negative: Rash Musculoskeletal: Normal Range of Motion Extremities: Present: normal. Absent: edema Results 05/19/22 22:23 05/19/22 22:23 Cardiac Enzymes 05/19/22 Range/Units 22:23 AST 31 (5-40) units/L Coagulation 05/19/22 05/20/22 Range/Units 22:23 08:33 PT 13.7 15.0 H (12.2-14.9) Sec. INR 0.95 1.06 (0.87-1.13) APTT 29.0 35.1 (24.2-36.6) Sec. Lipids 05/19/22 Range/Units 22:23 Triglycerides 153 H (2-149) mg/dL Cholesterol 230 H (50-199) mg/dL HDL Cholesterol 45 (40-59) mg/dL Cholesterol/HDL Ratio 5.11 % CBC 05/19/22 Range/Units 22:23 WBC 10.7 (4.5-11.0) K/mm3 RBC 5.86 H (3.65-5.03) M/mm3 Hgb 13.1 (10.1-14.3) gm/dl Hct 41.5 (30.3-42.9) % Plt Count 259 (140-440) K/mm3 Lymph # (Auto) 1.8 (1.2-5.4) K/mm3 [place]isher # (Auto) 0.8 (0.0-0.8) K/mm3 Eos # (Auto) 0.2 (0.0-0.4) K/mm3 Baso # (Auto) 0.2 H (0.0-0.1) K/mm3 Comprehensive Metabolic Panel 05/19/22 Range/Units 22:23 Sodium 142 (137-145) mmol/L Potassium 4.7 (3.6-5.0) mmol/L Chloride 101.7 (98-107) mmol/L Carbon Dioxide 31 H (22-30) mmol/L BUN 21 H (7-17) mg/dL Creatinine 1.2 (0.6-1.2) mg/dL Glucose 210 H (65-100) mg/dL Calcium 10.4 H (8.4-10.2) mg/dL AST 31 (5-40) units/L ALT 45 (7-56) units/L Alkaline Phosphatase 144 H (35-129) units/L Total Protein 6.6 (6.3-8.2) g/dL Albumin 4.1 (3.9-5) g/dL - Imaging and Cardiology EKG: image reviewed EKG interpretations - Telemetry EKG Rhythm: Sinus Rhythm QRS axis and voltage: left axis deviation (Poor R wave progression) Assessment and Plan Initiate anti-ischemic regimen. Agree with heparin. Schedule her for coronary angiography tomorrow. - Patient Problems (1) Acute non-ST elevation myocardial infarction (NSTEMI) Current Visit: Yes Status: Acute (2) CAD (coronary artery disease) Current Visit: Yes Status: Chronic Qualifiers: Coronary Disease-Associated Artery/Lesion type: [place] artery (3) Stented coronary artery Current Visit: Yes Status: Chronic (4) Hypertension Current Visit: Yes Status: Chronic Qualifiers: Hypertension type: primary hypertension Qualified Code(s): I10 - Essential (primary) hypertension (5) Diabetes mellitus Current Visit: Yes Status: Chronic Qualifiers: Diabetes mellitus type: type 2 (6) Asthma Current Visit: Yes Status: Chronic (7) Morbid obesity Current Visit: Yes Status: Chronic
[2022-05-20] MEDS: INSULIN LISPRO 100 UNIT/ML SUB-Q SCH ×3 (13:28→21:20)
[2022-05-20] MEDS: LORazepam 1 MG TAB PO PRN (13:29)
[2022-05-20] MEDS: oxyCODONE 5 MG TAB PO PRN ×2 (13:29→18:53)
[2022-05-20] MEDS ORDERED: SODIUM CHLORIDE 0.9% 500 ML 500 ML IV SCH (14:00)
[2022-05-20] MEDS ORDERED: ENOXAPARIN 120 MG/0.8 ML INJ SUB-Q SCH (14:00)
[2022-05-20] MEDS ORDERED: METOPROLOL TARTRATE 25 MG TAB PO SCH (22:00)
[2022-05-21] MEDS: LORazepam 1 MG TAB PO PRN ×2 (01:04→22:09)
[2022-05-21] MEDS: oxyCODONE 5 MG TAB PO PRN (01:04)
[2022-05-21] MEDS: INSULIN LISPRO 100 UNIT/ML SUB-Q SCH ×4 (07:50→22:13)
[2022-05-21] MEDS ORDERED: HEPARIN/NS 5000 UNIT/500ML 1,000 ML IR ONE (08:10)
[2022-05-21] MEDS ORDERED: SODIUM CHLORIDE 0.9% 1000 ML 1,000 ML ONE (08:12)
[2022-05-21] MEDS: fentaNYL 100 MCG/2 ML INJ ONE ×2 (08:37→09:15)
[2022-05-21] MEDS: LIDOCAINE (1%) 10 MG/1 ML VIAL 20 ML MDV ONE ×2 (08:37→09:17)
[2022-05-21] MEDS: MIDAZOLAM 2 MG/2 ML INJ ONE ×2 (08:37→09:15)
[2022-05-21] MEDS: HEPARIN 10,000 UNITS/10 ML VIAL ONE ×2 (08:38→09:19)
[2022-05-21] MEDS: VERAPAMIL 5 MG/2 ML INJ ONE ×2 (08:38→09:19)
[2022-05-21] MEDS: NITROGLYCERIN SYRINGE 3 ML ONE ×2 (08:39→09:19)
[2022-05-21] MEDS ORDERED: CLOPIDOGREL 300 MG TAB ONE (09:45)
--- NOTE | 2022-05-21 09:58 | Electrocardiograph Report ---
[facility] Test Date: 2022-05-20 Test Time: 10:51:17 Pat Name: CAROLEE LOVE Department: Room: A465 1 Gender: F K 9 Police Officer: ELODIA : 1945 Requested By: JASWINDER JOHNSON Order Number: [id number] Reading MD: Abdulaziz Forrester Measurements Intervals [place] Rate: 57 P: 58 NH: 148 QRS: -39 QRSD: 95 T: -16 QT: 400 QTc: 391 Interpretive Statements Sinus rhythm nonspecific st-t Compared to ECG 05/20/2022 03:13:31 Myocardial infarct finding now present Poor R-wave progression no longer present Left-axis deviation no longer present Electronically Signed On 05-21-2022 9:58:17 EDT by Abdulaziz Forrester
--- NOTE | 2022-05-21 10:02 | Electrocardiograph Report ---
[facility] Test Date: 2022-05-20 Test Time: 14:37:13 Pat Name: CAROLEE LOVE Department: Room: A465 1 Gender: F Pulp Bleacher: ELODIA : 1945 Requested By: YING PHILLIPS Order Number: [id number] Reading MD: Abdulaziz Forrester Measurements Intervals [place] Rate: 65 P: 0 SC: 70 QRS: -37 QRSD: 99 T: 12 QT: 392 QTc: 407 Interpretive Statements Sinus rhythm nonspecific st-t Compared to ECG 05/20/2022 10:51:17 No significant changes Electronically Signed On 05-21-2022 10:01:33 EDT by Abdulaziz Forrester
[2022-05-21] MEDS ORDERED: traMADol 50 MG TAB PO PRN (10:30)
--- NOTE | 2022-05-21 10:42 | Progress Note ---
Assessment and Plan Patient is 76-year-old female past medical history of CAD s/p PCI, diabetes, hypertension, hyperlipidemia, asthma who presented to the ED for complaint of chest pain NSTEMI Acute diastolic heart Hypertension Uncontrolled diabetes Coronary artery disease s/p PCI Hyperlipidemia Obesity Echocardiogram 05/20/2022-EF 60 to 65%. Normal LV wall thickness. Aortic valve leaflets are moderately thickened and calcified. No aortic valvular stenosis. Mild aortic regurgitation. Trace to mild tricuspid regurgitation. Moderate pulmonary hypertension Cardiac cath 05/21/2022-left main pain, LAD proximal pain, proximal and mid 30%, mid stent patent. Diagonal 1 diffuse disease, less than 1.5 mm 80% lesion proximally. At the distal LAD there is a focal 95% lesion of less than 2 mm vessel. Circumflex is patent. Recommend aggressive medical manage Plan: Patient for cardiac cath this a.m. patient found to have small vessel disease. Recommend medical management. See cath report for full detail Will increase to metoprolol 25 mg p.o. twice daily Initiate Imdur 30 mg p.o. daily and clopidogrel 75 mg p.o. daily Stop heparin drip Continue aspirin and atorvastatin 40 mg p.o. nightly Recommend monitoring patient additional night in hospital while initiating medical management. If patient tolerates expect possible discharge in a.m. Plan of care discussed with patient who verbalized understanding and acknowledgment Patient seen in conjunction with Dr. Forrester who agrees with this plan of care - Patient Problems (1) Uncontrolled diabetes mellitus Current Visit: Yes Status: Acute (2) Acute diastolic heart failure Current Visit: Yes Status: Acute (3) Acute non-ST elevation myocardial infarction (NSTEMI) Current Visit: Yes Status: Acute (4) Coronary artery disease due to calcified coronary lesion Current Visit: Yes Status: Acute (5) Asthma Current Visit: Yes Status: Chronic (6) Diabetes mellitus Current Visit: Yes Status: Chronic Qualifiers: Diabetes mellitus type: type 2 (7) Hypertension Current Visit: Yes Status: Chronic Qualifiers: Hypertension type: primary hypertension Qualified Code(s): I10 - Essential (primary) hypertension (8) Morbid obesity Current Visit: Yes Status: Chronic (9) Stented coronary artery Current Visit: Yes Status: Chronic Subjective Date of service: 05/21/22 Principal diagnosis: NSTEMI Interval history: Patient for cardiac cath this a.m. Sinus on monitor Objective Vital Signs Temp Pulse Resp BP Pulse Ox 05/21/22 05:02 98.1 F 66 20 140/74 99 05/21/22 00:29 97.8 F 70 20 120/61 97 05/20/22 20:53 99 05/20/22 20:08 98.4 F 100 H 16 88/46 96 - Physical Examination General: No Apparent Distress HEENT: Positive: EOMI, Normocephaly, Mucus Membranes Moist Neck: Positive: neck supple, trachea midline Cardiac: Positive: Reg Rate and Rhythm Lungs: Positive: Normal Breath Sounds Neuro: Positive: Grossly Intact Abdomen: Positive: Soft, Active Bowel Sounds. Negative: Tender Skin: Positive: Clear. Negative: Rash Musculoskeletal: Normal Range of Motion Extremities: Present: normal. Absent: edema - Imaging and Cardiology EKG: image reviewed - Telemetry EKG Rhythm: Sinus Rhythm QRS axis and voltage: left axis deviation (Poor R wave progression)
--- NOTE | 2022-05-21 10:55 | Cardiac Catherization Report ---
DATE OF SERVICE: 05/21/2022 LEFT HEART CATHETERIZATION CLINICAL INFORMATION: A 76-year-old -[place] female with morbid obesity, diabetes, not controlled, with known coronary artery disease with PCI of the LAD in 2005 at [facility], presents with chest pain of unstable angina with non-STEMI type 1, who is here for a left heart catheterization. Procedure was done with moderate sedation, started at 9:15, finished at 9:30, 15 minutes of moderate sedation. DESCRIPTION OF PROCEDURE: Procedure was done via the right radial artery, sterile technique and local anesthesia. A 6-Yoruba radial sheath inserted. Left system engaged with a JL3.5 catheter. Left main is a large caliber vessel, patent. LAD proximal is a medium caliber vessel with 30% lesion. Small diagonal vessel with diffuse disease is noted. Then, diagonal 2 is patent. The mid-LAD stent is patent. Then, after that near the apex, there is a 90-95% lesion, which appears to be culprit of a small vessel, less than 2 mm, angiographically speaking noted. Circumflex is a dwnavi-pk-szezz caliber vessel, patent with mild luminal irregularities. OM1, OM2 are oxpbd-ts-nchcpa caliber vessels, are patent with moderate tortuosity and mild luminal irregularities. RCA is a large caliber vessel, patent with diffuse mild luminal irregularities. PDA, PLV are tfpfh-uw-rinarm caliber vessels with multiple branches and moderate tortuosity are patent. LV gram done in YIFAN and MORAN view shows EF of 55-60%, LVEDP of 18 mmHg, LV is 140, aortic is 138/68. No gradient across the aortic valve on pullback. The 5-Yoruba catheters all taken over a guidewire. The 6-Yoruba radial sheath was discontinued. Radial band applied. No hematoma, no bleeding. SUMMARY: Left main patent, LAD proximal patent, proximal and mid 30%, mid-stent patent. Diagonal 1 diffuse disease, less than 1.5 mm, 80% lesion proximally. Diagonal 2 patent. At the distal LAD, there is a focal 95% lesion of less than 2 mm vessel. Circumflex is patent. OM1, OM2 patent with mild luminal irregularities. RCA large, dominant, patent with mild luminal irregularities, normal LV function. RECOMMENDATIONS: In view of small vessel disease, treat medically. Reload with Plavix. Aggressive medical management. TID: [id number] RECEIPT: [id number] VRM/ARV/ADA
--- NOTE | 2022-05-21 11:14 | Progress Note ---
Assessment and Plan Assessment and plan: #NSTEMI Troponin 0.044--> 0.167. Continuing to trend troponins Transitioning to heparin drip. Continue aspirin 81 mg daily and Lipitor 40 mg daily. Cardiology consulted; appreciate recs. Left heart catheterization (05/21/2022) revealing small vessel disease distal to previous stenting. Cardiology recommending medical management. Increasing metoprolol titrate to 25 mg twice daily, Imdur 30 mg daily, Plavix 75 mg daily. Continuing aspirin 81 mg daily and atorvastatin 40 mg nightly. #Hypertension - home medications: Amlodipinebenazepril 10-40 mg daily, HCTZ 50 mg daily, Aldactone 50 mg daily - current medications: Holding as patient is currently normotensive - SBP goal <160 and DBP goal <90 while inpatient - continue to monitor #Non-insulin dependent type II diabetes mellitus - hemoglobin A1c: Unknown - home regimen: Semaglutide 0.25 mg subcutaneous weekly, Farxiga 10 mg daily - current regimen: Moderate SSI - blood glucose goal 140-180 while inpatient - continue to monitor #History of coronary artery disease Continue aspirin 81 mg daily, Lipitor 40 mg daily #Mild remittent asthma Continue albuterol nebs every 4 hours as needed #Morbid obesity #Weight loss counseling #Exercise counseling - BMI 43.4 - Counseled patient on the importance of weight loss, incorporating exercise, and dietary changes (lean meats, fresh fruits and vegetables, and water intake). Patient expresses understanding. - Time: +15 min #Advanced care planning -Disease education conducted, care plan discussed, diagnoses discussed, prognosis discussed, and patient acknowledges understanding with care plan -Time: +30 min #Discharge planning - Patient is pending 24 hours of medical management status post left heart catheterization - Case management has been made aware. - Discharge is tentatively 05/22/2022. Disposition Plan: Continue medical management Total Time Spent with Patient (Minutes): 45 minutes History Interval history: No acute events overnight. Hospitalist Physical - Constitutional Vitals: Temp Pulse Resp BP Pulse Ox 98.1 F 66 20 140/74 99 05/21/22 05:02 05/21/22 05:02 05/21/22 05:02 05/21/22 05:02 05/21/22 05:02 General appearance: Present: no acute distress, well-nourished, obese - EENT Eyes: Present: PERRL, EOM intact ENT: hearing intact, clear oral mucosa, dentition normal - Neck Neck: Present: supple, normal ROM - Respiratory Respiratory effort: normal Respiratory: bilateral: CTA - Cardiovascular Rhythm: regular Heart Sounds: Present: S1 & S2 - Extremities Extremities: no ischemia, pulses intact, pulses symmetrical, No edema, normal temperature, normal color Peripheral Pulses: within normal limits - Abdominal General gastrointestinal: soft, non-tender, non-distended, normal bowel sounds - Integumentary Integumentary: Present: clear, warm, dry - Psychiatric Psychiatric: appropriate mood/affect, intact judgment & insight, memory intact, cooperative - Neurologic Neurologic: CNII-XII intact, moves all extremities - Allied Health Allied health notes reviewed: nursing HEART Score - HEART Score EKG: Non-specific Age: > 65 Risk factors: > 3 risk factors or hx of atherosclerotic disease Troponin: Troponin T 0.244 ng/mL (0.00-0.029) H* D 05/20/22 07:34 Troponin: 1-3x normal limit - Critical Actions Critical Actions: >7 pts:50-65% risk of adverse cardiac event. Early invasive measures Results - Labs CBC & Chem 7: 05/19/22 22:23 05/19/22 22:23 Labs: Laboratory Last Values WBC 10.7 K/mm3 (4.5-11.0) 05/19/22 22: RBC 5.86 M/mm3 (3.65-5.03) H 05/19/22 22:23 Hgb 13.1 gm/dl (10.1-14.3) 05/19/22 22: Hct 41.5 % (30.3-42.9) 05/19/22 22:23 MCV 71 fl (79-97) L 05/19/22 22:23 MCH 22 pg (28-32) L 05/19/22 22:23 MCHC 32 % (30-34) 05/19/22 22:23 RDW 16.5 % (13.2-15.2) H 05/19/22 22:23 Plt Count 259 K/mm3 (140-440) 05/19/22 22:23 Lymph % (Auto) 17.0 % (13.4-35.0) 05/19/22 22:23 Island % (Auto) 7.2 % (0.0-7.3) 05/19/22 22:23 Eos % (Auto) 1.9 % (0.0-4.3) 05/19/22 22:23 Baso % (Auto) 2.3 % (0.0-1.8) H 05/19/22 22:23 Lymph # (Auto) 1.8 K/mm3 (1.2-5.4) 05/19/22 22: Island # (Auto) 0.8 K/mm3 (0.0-0.8) 05/19/22 22:23 Eos # (Auto) 0.2 K/mm3 (0.0-0.4) 05/19/22 22:23 Baso # (Auto) 0.2 K/mm3 (0.0-0.1) H 05/19/22 22:23 Seg Neutrophils % 71.6 % (40.0-70.0) H 05/19/22 22:23 Seg Neutrophils # 7.7 K/mm3 (1.8-7.7) 05/19/22 22:23 PT 15.0 Sec. (12.2-14.9) H 05/20/22 08:33 INR 1.06 (0.87-1.13) 05/20/22 08:33 APTT 35.1 Sec. (24.2-36.6) 05/20/22 08:33 D-Dimer 532.06 ng/mlDDU (0-234) H 05/19/22 22:23 Heparin Anti-Xa Level 0.57 U.I./ml (0.3-0.7) 05/21/22 04:09 Sodium 142 mmol/L (137-145) 05/19/22 22:23 Potassium 4.7 mmol/L (3.6-5.0) 05/19/22 22:23 Chloride 101.7 mmol/L (98-107) 05/19/22 22:23 Carbon Dioxide 31 mmol/L (22-30) H 05/19/22 22:23 Anion Gap 14 mmol/L 05/19/22 22:23 BUN 21 mg/dL (7-17) H 05/19/22 22:23 Creatinine 1.2 mg/dL (0.6-1.2) 05/19/22 22:23 Estimated GFR 44 ml/min 05/19/22 22:23 BUN/Creatinine Ratio 18 % 05/19/22 22:23 Glucose 210 mg/dL (65-100) H 05/19/22 22:23 POC Glucose 148 mg/dL (70-105) H 05/20/22 21:19 Calcium 10.4 mg/dL (8.4-10.2) H 05/19/22 22:23 Magnesium 1.90 mg/dL (1.7-2.3) 05/19/22 22:23 Total Bilirubin 0.20 mg/dL (0.1-1.2) 05/19/22 22:23 AST 31 units/L (5-40) 05/19/22 22:23 ALT 45 units/L (7-56) 05/19/22 22:23 Alkaline Phosphatase 144 units/L (35-129) H 05/19/22 22:23 Total Creatine Kinase 108 units/L (30-135) 05/19/22 22:23 Troponin T 0.244 ng/mL (0.00-0.029) H* D 05/20/22 07:34 Total Protein 6.6 g/dL (6.3-8.2) 05/19/22 22:23 Albumin 4.1 g/dL (3.9-5) 05/19/22 22:23 Albumin/Globulin Ratio 1.6 % 05/19/22 22:23 Triglycerides 153 mg/dL (2-149) H 05/19/22 22:23 Cholesterol 230 mg/dL (50-199) H 05/19/22 22:23 LDL Cholesterol Direct 157 mg/dL (50-130) H 05/19/22 22:23 HDL Cholesterol 45 mg/dL (40-59) 05/19/22 22:23 Cholesterol/HDL Ratio 5.11 % 05/19/22 22:23 Knight/IV: Voiding Method Toilet Active Medications - Current Medications Current Medications: Generic Name Dose Route Start Last Admin Trade Name Freq PRN Reason Stop Dose Admin Acetaminophen 650 mg 05/20/22 03:29 Acetaminophen 325 Mg Tab PO Q4H PRN Pain, Mild (1-3) Hydrocodone Bitart/Acetaminophen 1 each 05/21/22 10:30 Hydrocodone/Acetaminophen 5-325 Mg Tab PO Q4H PRN Pain, Moderate (4-6) Aspirin 81 mg 05/20/22 10:00 05/20/22 09:38 Aspirin Ec 325 Mg Tab PO 81 mg QDAY [facility] Administration Atorvastatin Calcium 40 mg 05/20/22 22:00 05/20/22 21:09 Atorvastatin 40 Mg Tab PO 40 mg QHS LEATHA Administration Clopidogrel Bisulfate 75 mg 05/22/22 10:00 Clopidogrel 75 Mg Tab PO QDAY [facility] Dextrose 50 ml 05/20/22 03:29 Dextrose 50% In Water (25gm) 50 Ml Syringe IV Q30MIN PRN Hypoglycemia Protocol Heparin Sodium (Porcine) 4,400 unit 05/20/22 08:10 Heparin 10,000 Units/10 Ml Vial 40 unit/kg (4400 unit) IV Q6H PRN Anti-Xa Assay < 0.1 units/ml Insulin Human Lispro 0 unit 05/20/22 11:30 05/21/22 07:50 Insulin Lispro 100 Unit/Ml SUB-Q Not Given ACHS [facility] Protocol Isosorbide Mononitrate 30 mg 05/21/22 10:00 Isosorbide Mononitrate Er 30 Mg Tab PO QDAY [facility] Lorazepam 1 mg 05/20/22 13:14 05/21/22 01:04 Lorazepam 1 Mg Tab PO 1 mg Q8H PRN Administration Agitation Metoprolol Tartrate 25 mg 05/21/22 10:30 Metoprolol Tartrate 25 Mg Tab PO BID [facility] Morphine Sulfate 2 mg 05/20/22 01:15 05/20/22 12:00 Morphine 2 Mg/1 Ml Inj IV 2 mg Q4H PRN Administration Pain, Moderate (4-6) Nitroglycerin 0.4 mg 05/20/22 03:29 Nitroglycerin 0.4 Mg Tab Subl SL .Q5MIN PRN Chest Pain Ondansetron HCl 4 mg 05/20/22 01:15 Ondansetron 4 Mg/2 Ml Inj IV Q8H PRN Nausea And Vomiting Sodium Chloride 10 ml 05/20/22 10:00 05/20/22 21:13 Sodium Chloride 0.9% 10 Ml Flush Syringe IV 10 ml BID LEATHA Administration Sodium Chloride 10 ml 05/20/22 01:15 05/20/22 07:11 Sodium Chloride 0.9% 10 Ml Flush Syringe IV 10 ml PRN PRN Administration LINE FLUSH Tramadol HCl 50 mg 05/21/22 10:30 Tramadol 50 Mg Tab PO Q4H PRN Pain, Mild (1-3) Nutrition/Malnutrition Assess - Dietary Evaluation Nutrition/Malnutrition Findings: Nutrition Notes Start: 05/20/22 10:56 Freq: Status: Active Protocol: Document 05/20/22 10:56 TW (Rec: 05/20/22 11:06 TW [id number]) Nutrition Notes Need for Assessment generated from: MD Order,Education Initial or Follow up Brief Note Current Diagnosis Coronary Artery Disease, Diabetes,Hypertension Other Pertinent Diagnosis Chest pains, hypertensive, Acute IN, stents Current Diet Cardiac/ NPO after midnight Labs/Tests Glucose: 162 Troponin: .244 Pertinent Medications Reviewed Height 5 ft 3 in Weight 111.13 kg [place] Body Weight (kg) 52.27 BMI 43.4 Weight Status Morbidly Obese Subjective/Other Information RD consult for diet education. Pt has c/o chest pain and is hypertensive. Pt has hx of DM and HTN/cardiac events. Pt not a candidate for diet education at this time. Minimum of two criteria No Is patient on ventilator? No Is Patient Ambulatory and/or Out of Bed No REE-([place]-confined to bed) [phone] Nutrition Intervention Follow-Up By: 05/21/22 Additional Comments F/U for additional diet education needs or MD consult.
[2022-05-21] MEDS: HYDROcodone/ACETAMINOPHEN 5-325 MG TAB PO PRN ×2 (12:05→20:16)
[2022-05-21] MEDS: METOPROLOL TARTRATE 25 MG TAB PO SCH ×2 (12:06→22:14)
--- NOTE | 2022-05-21 12:06 | Vascular Lab Report ---
DUPLEX DOPPLER LOWER EXTREMITY VEINS, BILATERAL INDICATION / CLINICAL INFORMATION: Evaluate for possible DVT. TECHNIQUE: Duplex doppler imaging was performed through the veins of both lower extremities using venous garrett cheryl and other maneuvers. COMPARISON: None available. FINDINGS: RIGHT COMMON FEMORAL VEIN: Negative. RIGHT FEMORAL VEIN: Negative. RIGHT POPLITEAL VEIN: Negative. RIGHT CALF VEINS: Negative. LEFT COMMON FEMORAL VEIN: Negative. LEFT FEMORAL VEIN: Negative. LEFT POPLITEAL VEIN: Negative. LEFT CALF VEINS: Negative. ADDITIONAL FINDINGS: Small 2.8 cm right popliteal cyst IMPRESSION: 1. No sonographic evidence for DVT in either lower extremity. 2. 2.8 cm right popliteal cyst Signer Name: Flip Rao MD Signed: 05/21/2022 12:02 PM Workstation Name: [employer] ([employer]
[2022-05-22] MEDS ORDERED: ZOLPIDEM 5 MG TAB PO ONE (00:05)
[2022-05-22] MEDS: HYDROcodone/ACETAMINOPHEN 5-325 MG TAB PO PRN ×2 (00:24→10:23)
[2022-05-22 06:07] LABS: Basophils # (Auto) 0.1 K/mm3 (0.0-0.1); Basophils % (Auto) 0.7 % (0.0-1.8); Eosinophils # (Auto) 0.2 K/mm3 (0.0-0.4); Eosinophils % (Auto) 2.9 % (0.0-4.3); Hemoglobin 11.9 gm/dl (10.1-14.3); Lymphocytes # (Auto) 1.8 K/mm3 (1.2-5.4); Lymphocytes % (Auto) 23.4 % (13.4-35.0); Mean Corpuscular HGB Conc 32 % (30-34); Mean Corpuscular Volume 71 fl (79-97); Monocytes # (Auto) 0.7 K/mm3 (0.0-0.8); Monocytes % (Auto) 9.3 % (0.0-7.3); Platelet Count 220 K/mm3 (140-440); Red Blood Count 5.24 M/mm3 (3.65-5.03); Red Cell Distribution Width 16.9 % (13.2-15.2)
[2022-05-22 06:20] LABS: Calcium 9.3 mg/dL (8.4-10.2)
[2022-05-22] MEDS ORDERED: ASPIRIN EC 81 MG TAB PO SCH (10:00)
[2022-05-22] MEDS ORDERED: CLOPIDOGREL 75 MG TAB PO SCH (10:00)
[2022-05-22] MEDS: METOPROLOL TARTRATE 25 MG TAB PO SCH (10:24)
--- NOTE | 2022-05-22 11:24 | Progress Note ---
Assessment and Plan Patient is 76-year-old female past medical history of CAD s/p PCI, diabetes, hypertension, hyperlipidemia, asthma who presented to the ED for complaint of chest pain NSTEMI Acute diastolic heart Hypertension Uncontrolled diabetes Coronary artery disease s/p PCI Hyperlipidemia Obesity Echocardiogram 05/20/2022-EF 60 to 65%. Normal LV wall thickness. Aortic valve leaflets are moderately thickened and calcified. No aortic valvular stenosis. Mild aortic regurgitation. Trace to mild tricuspid regurgitation. Moderate pulmonary hypertension Cardiac cath 05/21/2022-left main pain, LAD proximal pain, proximal and mid 30%, mid stent patent. Diagonal 1 diffuse disease, less than 1.5 mm 80% lesion proximally. At the distal LAD there is a focal 95% lesion of less than 2 mm vessel. Circumflex is patent. Recommend aggressive medical manage Plan: Patient is status post cardiac cath yesterday. Recommend medical management. See cath report for full detail Continue metoprolol 25 mg p.o. twice daily, Imdur 30 mg p.o. daily, clopidogrel 75 mg p.o. daily, aspirin, and atorvastatin 40 mg p.o. nightly Recommended importance of medication compliance, diet, exercise, and follow-ups. Patient verbally understanding and acknowledgment Plan of care discussed with patient who verbalized understanding and acknowledgment Cardiac otherwise stable for discharge Patient is following with , [facility] technical applications specialist, on 06/12/2022 at 11 AM in our [place] location. Phone #[phone] Patient seen in conjunction with Dr. Forrester who agrees with this plan of care - Patient Problems (1) Uncontrolled diabetes mellitus Current Visit: Yes Status: Acute (2) Acute diastolic heart failure Current Visit: Yes Status: Acute (3) Acute non-ST elevation myocardial infarction (NSTEMI) Current Visit: Yes Status: Acute (4) Coronary artery disease due to calcified coronary lesion Current Visit: Yes Status: Acute (5) Asthma Current Visit: Yes Status: Chronic (6) Diabetes mellitus Current Visit: Yes Status: Chronic Qualifiers: Diabetes mellitus type: type 2 (7) Hypertension Current Visit: Yes Status: Chronic Qualifiers: Hypertension type: primary hypertension Qualified Code(s): I10 - Essential (primary) hypertension (8) Morbid obesity Current Visit: Yes Status: Chronic (9) Stented coronary artery Current Visit: Yes Status: Chronic Subjective Date of service: 05/22/22 Principal diagnosis: NSTEMI Interval history: Patient resting in bed in no acute distress Sinus 70s to 80s on monitor Objective Vital Signs Temp Pulse Resp BP Pulse Ox 05/22/22 10:24 77 145/58 05/22/22 10:00 99 05/22/22 07:39 97.8 F 77 18 145/58 99 05/22/22 03:33 97.3 F L 70 18 150/62 94 05/21/22 23:08 97.9 F 14 130/62 05/21/22 22:00 99 05/21/22 19:41 98.3 F 89 18 135/54 95 05/21/22 13:08 70 174/93 92 - Physical Examination General: No Apparent Distress HEENT: Positive: EOMI, Normocephaly, Mucus Membranes Moist Neck: Positive: neck supple, trachea midline Cardiac: Positive: Reg Rate and Rhythm Lungs: Positive: Normal Breath Sounds Neuro: Positive: Grossly Intact Abdomen: Positive: Soft, Active Bowel Sounds. Negative: Tender Skin: Positive: Clear, Other (Cardiac cath dressing in place no signs of bleeding or hematoma noted). Negative: Rash Musculoskeletal: Normal Range of Motion Extremities: Present: normal. Absent: edema - Labs and Meds CBC 05/22/22 Range/Units 05:20 WBC 7.6 (4.5-11.0) K/mm3 RBC 5.24 H (3.65-5.03) M/mm3 Hgb 11.9 (10.1-14.3) gm/dl Hct 37.0 (30.3-42.9) % Plt Count 220 (140-440) K/mm3 Lymph # (Auto) 1.8 (1.2-5.4) K/mm3 Ada # (Auto) 0.7 (0.0-0.8) K/mm3 Eos # (Auto) 0.2 (0.0-0.4) K/mm3 Baso # (Auto) 0.1 (0.0-0.1) K/mm3 Comprehensive Metabolic Panel 05/22/22 Range/Units 05:20 Sodium 141 (137-145) mmol/L Potassium 4.1 (3.6-5.0) mmol/L Chloride 105.7 (98-107) mmol/L Carbon Dioxide 25 (22-30) mmol/L BUN 18 H (7-17) mg/dL Creatinine 1.0 (0.6-1.2) mg/dL Glucose 155 H (65-100) mg/dL Calcium 9.3 (8.4-10.2) mg/dL - Imaging and Cardiology EKG: image reviewed - Telemetry EKG Rhythm: Sinus Rhythm - EKG Sinus rhythms and dysrhythmias: sinus rhythm QRS axis and voltage: left axis deviation (Poor R wave progression)
[2022-05-22 11:43] VITALS: BP 145/55
--- NOTE | 2022-05-22 12:10 | Discharge Summary ---
Providers - Providers Date of Admission: 05/21/22 10:00 Date of discharge: 05/22/22 Attending physician: DONNA GOMEZ MD 05/20/22 Consult to Cardiac Rehabilitation [CONS] Routine Reason For Exam: Phase 1 05/20/22 03:29 Consult to Cardiology [CONS] Routine Consulting Provider: DAVI FLANAGAN Reason For Exam: acs Consult to Dietitian/Nutrition [CONS] Routine Physician Instructions: Reason For Exam: Reason for Consult: Diet education Primary care physician: DIVINE MCFARLANE Hospitalization Reason for admission: ACS rule out Condition: Good Hospital course: Patient is a 76-year-old female with history of diabetes, hypertension, and coronary artery disease status post stenting who presented with chest pain. She was found to have hypertensive urgency. She was admitted for ACS rule out and started on Lovenox for anticoagulation. Echocardiogram showed normal left ventricular ejection fraction, mild aortic regurgitation and moderate pulmonary hypertension. Duplex of bilateral lower extremities negative for DVT. Cardiac cath revealed 80% proximal lesion in the diagonal and 95% distal LAD. It was recommended for the patient to continue aggressive medical management. Anticoagulation was discontinued and once patient was stable she was discharged home. Disposition: 01 HOME / SELF CARE / HOMELESS Final Discharge Diagnosis (Prints w/discharge instructions): NSTEMI type I. Hypertension. Noninsulin-dependent type 2 diabetes. Coronary artery disease. Mild intermittent asthma. Morbid obesity Time spent for discharge: 40 minutes Core Measure Documentation - Palliative Care Palliative Care/ Comfort Measures: Not Applicable - Core Measures Any of the following diagnoses?: acute DE - Acute DE Discharge Requirements Aspirin at discharge: Yes BETH/ARB for LVSD if EF <40%: Not Applicable Beta armani at discharge: Yes Statin for LDL = or >100 mg/dl on DC: Yes Exam - Physical Exam Narrative exam: GENERAL: Obese woman. In no acute distress. HEENT: Normocephalic. Atraumatic. NECK: Supple. CHEST/LUNGS: CTAB on room air HEART/CARDIOVASCULAR: RRR. No murmur, rubs or gallops appreciated. ABDOMEN: +BS. NT/ND. SKIN: No rashes noted. NEURO: No focal motor deficit. Follows all commands. MUSCULOSKELETAL: No joint effusion EXTREMITIES: No cyanosis, clubbing or edema. PSYCH: Cooperative. - Constitutional Vitals: Temp Pulse Resp BP Pulse Ox 98.3 F 71 18 145/55 91 05/22/22 11:41 05/22/22 11:41 05/22/22 11:41 05/22/22 11:41 05/22/22 11:41 Plan Care Plan Goals: Please follow with your primary care provider. Please take all medications as they are prescribed to you. You have a follow-up appointment with your digital marketing assistant , [facility] dairy specialist, on 06/12/2022 at 11 AM at the [place] location. Phone #[phone]. Follow up with: DIVINE MCFARLANE MD [Primary Care Provider] - 7 Days Prescriptions: AtorvaSTATin [Lipitor] 40 mg PO QHS 30 Days #30 tablet Aspirin EC [Halfprin EC] 81 mg PO QDAY 30 Days #30 tablet ISOSORBIDE MONOnitrate [Imdur ER] 30 mg PO QDAY 30 Days #30 tablet Metoprolol [Lopressor TAB] 25 mg PO BID 30 Days #60 tablet Nitroglycerin [Nitrostat] 0.4 mg SL .Q5MIN PRN 30 Days #30 tablet PRN Reason: Chest Pain Clopidogrel [Plavix] 75 mg PO QDAY 30 Days #30 tablet
== END 2022-05-22 16:50 | disposition home or self-care (01) | DRG 280 ==
LOC: ED 21:09 → 4A 05-20 01:15 → OBSVTOIN 05-21 10:00
PROVIDERS: ADMIT Hospitalist; ATTEND Student in an Organized Health Care Education/Training Program
PROC: 4A023N7 Measurement of Cardiac Sampling and Pressure, Left Heart, Percutaneous Approach (ICD-10-PCS; principal; 2022-05-21)
PROC: B2151ZZ Fluoroscopy of Left Heart using Low Osmolar Contrast (ICD-10-PCS; 2022-05-21)
PROC: B2111ZZ Fluoroscopy of Multiple Coronary Arteries using Low Osmolar Contrast (ICD-10-PCS; 2022-05-21)
DX: I21.4 Non-ST elevation (NSTEMI) myocardial infarction (principal); I50.31 Acute diastolic (congestive) heart failure; Z68.41 Body mass index [BMI] 40.0-44.9, adult; E66.01 Morbid (severe) obesity due to excess calories; E11.9 Type 2 diabetes mellitus without complications; I25.10 Atherosclerotic heart disease of native coronary artery without angina pectoris; J45.909 Unspecified asthma, uncomplicated; Z71.3 Dietary counseling and surveillance; E78.5 Hyperlipidemia, unspecified; I11.0 Hypertensive heart disease with heart failure; Z83.3 Family history of diabetes mellitus; Z88.0 Allergy status to penicillin; Z82.49 Family history of ischemic heart disease and other diseases of the circulatory system
CPT/HCPCS: 36415; 71046; 71275; 80048; 80053; 80061; 82550; 82962; 83735; 84484; 85025; 85379; 85520; 85610; 85730; 93005; 93306; 93458; 93970; G0378; J1815; J3490; Q9967; C1894; C8929; C9113; J1644; J1650; J2250; J2270; J2405; J3010; J7030

== ENCOUNTER 2022-05-24 10:49 | Emergency (ER) | payer MEDICARE ==
[2022-05-24] MEDS ORDERED: NITROGLYCERIN 0.4 MG TAB SUBL SL PRN (11:53)
--- NOTE | 2022-05-24 11:54 | Emergency Department Report ---
ED General Adult HPI - General Chief complaint: Chest Pain Stated complaint: Chest wall pain Time Seen by Provider: 05/24/22 11:24 Source: patient, EMS ( EMS documentation not available at time of chart dictation ), RN notes reviewed, old records reviewed Mode of arrival: Stretcher Limitations: No Limitations - History of Present Illness Initial comments: The patient was evaluated in the emergency department for symptoms described in the history of present illness. He/she was evaluated in the context of the global COVID-19 pandemic, which necessitated consideration that the patient might be at risk for infection with the virus that causes COVID-19. Institutional protocols and algorithms that pertain to the evaluation of patients at risk for COVID-19 are in a state of rapid change based on information released by regulatory bodies including the CDC and federal and state organizations. These policies and algorithms were followed during the patient's care in the emergency department. Please note that these policies, procedures and recommendations changed on a rapid basis. This is a 76-year-old female who I recently admitted to the medical service for acute chest pain and presumed NSTEMI. When I last saw her, she had a CTA chest which was negative for pulmonary embolism. She had a cardiac catheterization performed on May 21, 2022, which demonstrated left main patent, LAD proximal patent, proximal and mid 30%, mid stent patent. Diagonal 1 diffuse disease, less than 1 mm, 80% lesion proximally. Diagonal 2 patent, at the distal LAD, there is a focal 95% lesion of less than 2 mm vessel. Circumflex patent, OM1, OM 2 patent, with mild luminal irregularities. RCA large, dominant, patent with mild luminal irregularities, normal LV function. Cardiology recommendations were "in view of small vessel disease, treat medically. Reload with Plavix. Aggressive medical management." The patient presents to the ER today with complaint of consistent and persistent intermittent left-sided chest wall pain. There is no vomiting or diaphoresis. There is no leg pain or leg swelling. The pain does not radiate to the arms or neck. The patient reports compliance with her outpatient medication, including Lipitor, aspirin, isosorbide, metoprolol, nitro, and Plavix. She has been having persistent and intermittent left-sided nonexertional chest wall pain for the past few days. She got scared and nervous this morning, and called 911. She currently has follow-up with outpatient [facility] cardiology, June 12, 2022, at 11 AM, in the [place] location She is a little bit anxious, but otherwise denies additional injuries and complaints. When I walked into the room, she is speaking on her cellular phone -: days(s) Location: chest Severity scale (0 -10): 5 Consistency: intermittent Improves with: rest Worsens with: other (Palpation of the chest wall) - Related Data Home Medications Medication Instructions Recorded Confirmed Last Taken Dapagliflozin Propanediol [Farxiga] 10 mg PO DAILY 05/20/22 05/20/22 Unknown Oxycodone HCl [oxyCODONE] 10 mg PO Q6H PRN 05/20/22 05/20/22 Unknown Pregabalin [Lyrica] 75 mg PO DAILY 05/20/22 05/20/22 Unknown Semaglutide [Ozempic] 0.25 mg SQ QWEEK 05/20/22 05/20/22 Unknown Spironolactone [Aldactone] 50 mg PO QDAY 05/20/22 05/20/22 Unknown Previous Rx's Medication Instructions Recorded Last Taken Type Aspirin EC [Halfprin EC] 81 mg PO QDAY 30 Days #30 tablet 05/22/22 Unknown Rx AtorvaSTATin [Lipitor] 40 mg PO QHS 30 Days #30 tablet 05/22/22 Unknown Rx Clopidogrel [Plavix] 75 mg PO QDAY 30 Days #30 tablet 05/22/22 Unknown Rx ISOSORBIDE MONOnitrate [Imdur ER] 30 mg PO QDAY 30 Days #30 tablet 05/22/22 Unknown Rx Metoprolol [Lopressor TAB] 25 mg PO BID 30 Days #60 tablet 05/22/22 Unknown Rx Nitroglycerin [Nitrostat] 0.4 mg SL .Q5MIN PRN 30 Days #30 05/22/22 Unknown Rx tablet Ranolazine [Ranexa] 500 mg PO BID #60 tab 05/24/22 Unknown Rx Allergies Allergy/AdvReac Type Severity Reaction Status Date / Time Penicillins Allergy Unknown Verified 09/19/18 23:06 ED Review of Systems ROS: Stated complaint: STEMI Other details as noted in HPI Constitutional: denies: fever Respiratory: denies: cough Cardiovascular: chest pain Gastrointestinal: denies: abdominal pain, hematemesis, melena, hematochezia Neurological: denies: weakness Psychiatric: anxiety Hematological/Lymphatic: denies: easy bleeding ED Past Medical Hx - Past Medical History Hx Hypertension: Yes Hx Diabetes: Yes Hx Asthma: Yes Additional medical history: CAD - Surgical History Hx Coronary Stent: Yes (X3) Additional Surgical History: Coloscopy - Social History Smoking Status: Never Smoker - Medications Home Medications: Home Medications Medication Instructions Recorded Confirmed Last Taken Type Dapagliflozin Propanediol [Farxiga] 10 mg PO DAILY 05/20/22 05/20/22 Unknown History Oxycodone HCl [oxyCODONE] 10 mg PO Q6H PRN 05/20/22 05/20/22 Unknown History Pregabalin [Lyrica] 75 mg PO DAILY 05/20/22 05/20/22 Unknown History Semaglutide [Ozempic] 0.25 mg SQ QWEEK 05/20/22 05/20/22 Unknown History Spironolactone [Aldactone] 50 mg PO QDAY 05/20/22 05/20/22 Unknown History Aspirin EC [Halfprin EC] 81 mg PO QDAY 30 Days #30 tablet 05/22/22 Unknown Rx AtorvaSTATin [Lipitor] 40 mg PO QHS 30 Days #30 tablet 05/22/22 Unknown Rx Clopidogrel [Plavix] 75 mg PO QDAY 30 Days #30 tablet 05/22/22 Unknown Rx ISOSORBIDE MONOnitrate [Imdur ER] 30 mg PO QDAY 30 Days #30 tablet 05/22/22 Unknown Rx Metoprolol [Lopressor TAB] 25 mg PO BID 30 Days #60 tablet 05/22/22 Unknown Rx Nitroglycerin [Nitrostat] 0.4 mg SL .Q5MIN PRN 30 Days #30 05/22/22 Unknown Rx tablet Ranolazine [Ranexa] 500 mg PO BID #60 tab 05/24/22 Unknown Rx ED Physical Exam - General Limitations: No Limitations General appearance: alert, anxious, obese - Head Head exam: Present: atraumatic, normocephalic - Eye Eye exam: Present: normal appearance, EOMI. Absent: nystagmus - ENT ENT exam: Present: normal exam, normal orophraynx, mucous membranes moist, normal external ear exam - Neck Neck exam: Present: normal inspection, full ROM. Absent: tenderness, meningismus - Respiratory Respiratory exam: Present: normal lung sounds bilaterally, chest wall tenderness. Absent: respiratory distress, wheezes, rales, rhonchi, stridor, decreased breath sounds - Cardiovascular Cardiovascular Exam: Present: regular rate, normal rhythm, normal heart sounds. Absent: bradycardia, tachycardia, irregular rhythm, systolic murmur, diastolic murmur, rubs, gallop - GI/Abdominal GI/Abdominal exam: Present: soft. Absent: distended, tenderness, guarding, rebound, rigid, pulsatile mass - Extremities Exam Extremities exam: Present: normal inspection, full ROM, other (2+ pulses noted in the bilateral upper and lower extremities. There is no palpable cord. negative Homans sign. Muscular compartments are soft. The pelvis is stable.). Absent: calf tenderness - Back Exam Back exam: Present: normal inspection, full ROM. Absent: tenderness, CVA tenderness (R), CVA tenderness (L), paraspinal tenderness, vertebral tenderness - Neurological Exam Neurological exam: Present: alert, oriented X3, other (There is no facial droop. The tongue is midline. EOMI. 5/5 strength in 4 extremities. Sensation is intact to light touch in 4 extremities). Absent: motor sensory deficit - Psychiatric Psychiatric exam: Present: anxious - Skin Skin exam: Present: warm, dry, intact, normal color. Absent: rash ED Course Vital Signs 05/24/22 05/24/22 05/24/22 10:53 11:45 11:50 Temperature 98.5 F Pulse Rate 82 85 Respiratory 18 18 Rate Blood Pressure 143/79 148/71 [Left] O2 Sat by Pulse 99 99 99 Oximetry 05/24/22 05/24/22 12:08 12:22 Temperature Pulse Rate 74 75 Respiratory 18 18 Rate Blood Pressure 159/59 115/58 [Left] O2 Sat by Pulse 99 99 Oximetry - Reevaluation(s) Reevaluation #1: 05/24/22 13:12 Potassium 5.8 grossly hemolyzed. Patient recently had unremarkable potassium levels at this hospital. Patient has unremarkable renal function at this time, I do not suspect acute elevated potassium at this time ED Medical Decision Making - Lab Data Result diagrams: 05/24/22 11:35 05/24/22 11:35 Vital Signs 05/24/22 05/24/22 05/24/22 10:53 11:45 11:50 Temperature 98.5 F Pulse Rate 82 85 Respiratory 18 18 Rate Blood Pressure 143/79 148/71 [Left] O2 Sat by Pulse 99 99 99 Oximetry 05/24/22 05/24/22 12:08 12:22 Temperature Pulse Rate 74 75 Respiratory 18 18 Rate Blood Pressure 159/59 115/58 [Left] O2 Sat by Pulse 99 99 Oximetry Lab Results 05/24/22 05/24/22 05/24/22 Range/Units 11:35 11:35 11:35 WBC 9.3 (4.5-11.0) K/mm3 RBC 5.59 H (3.65-5.03) M/mm3 Hgb 12.4 (10.1-14.3) gm/dl Hct 39.4 (30.3-42.9) % MCV 70 L (79-97) fl MCH 22 L (28-32) pg MCHC 32 (30-34) % RDW 16.7 H (13.2-15.2) % Plt Count 252 (140-440) K/mm3 Lymph % (Auto) 21.9 (13.4-35.0) % Cache % (Auto) 9.8 H (0.0-7.3) % Eos % (Auto) 2.6 (0.0-4.3) % Baso % (Auto) 0.5 (0.0-1.8) % Lymph # (Auto) 2.0 (1.2-5.4) K/mm3 Cache # (Auto) 0.9 H (0.0-0.8) K/mm3 Eos # (Auto) 0.2 (0.0-0.4) K/mm3 Baso # (Auto) 0.1 (0.0-0.1) K/mm3 Seg Neutrophils % 65.2 (40.0-70.0) % Seg Neutrophils # 6.0 (1.8-7.7) K/mm3 PT 13.8 (12.2-14.9) Sec. INR 0.96 (0.87-1.13) APTT 27.9 (24.2-36.6) Sec. Sodium 139 (137-145) mmol/L Potassium 5.8 H D (3.6-5.0) mmol/L Chloride 100.3 (98-107) mmol/L Carbon Dioxide 26 (22-30) mmol/L Anion Gap 19 mmol/L BUN 12 (7-17) mg/dL Creatinine 1.0 (0.6-1.2) mg/dL Estimated GFR 54 ml/min BUN/Creatinine Ratio 12 % Glucose 194 H (65-100) mg/dL Calcium 9.4 (8.4-10.2) mg/dL Total Bilirubin 0.40 (0.1-1.2) mg/dL AST 40 (5-40) units/L ALT 37 (7-56) units/L Alkaline Phosphatase 119 (35-129) units/L Troponin T 0.015 (0.00-0.029) ng/mL Total Protein 6.4 (6.3-8.2) g/dL Albumin 3.8 L (3.9-5) g/dL Albumin/Globulin Ratio 1.5 % - EKG Data -: EKG Interpreted by Mt - EKG Data 05/24/22 13:00 The EKG today is interpreted at 10: 55 This is a sinus rhythm, with a ventricular rate of 76 bpm. There is a leftward axis deviation, there are Q waves noted in inferior leads, there is motion art ifact, and there are PVCs. Low voltage in the lateral leads. PVC. QTc 4 2 9 ms. Abnormal EKG. Not a STEMI 05/24/22 13:01 This EKG is unchanged from prior EKG from May 20, 2022 - Radiology Data Radiology results: pending, report reviewed, image reviewed CHEST 1 VIEW 05/24/2022 11:48 AM INDICATION / CLINICAL INFORMATION: chest pain. COMPARISON: 05/19/2022 FINDINGS: SUPPORT DEVICES: None. HEART / MEDIASTINUM: No significant abnormality. LUNGS / PLEURA: No significant pulmonary or pleural abnormality. No pneumothorax. ADDITIONAL FINDINGS: No significant additional findings. IMPRESSION: 1. No acute findings. Signer Name: Jaime Leija MD Signed: 05/24/2022 11:19 AM Workstation Name: [id number] - Medical Decision Making Differential diagnosis, include but not limited to: GERD, gastritis, hiatal hernia, costochondritis, chronic stable angina Assessment and plan: 76-year-old female with reproducible left-sided chest wall pain. I recently ruled this patient off of pulmonary embolism. She is not currently tachycardic, tachypneic or hypoxic, and I find her to be low risk by Wells criteria for pulmonary embolism. Troponin is negative x1 in the context of days of symptoms, and her EKG x1 is unchanged from prior. She had a recent cardiac catheterization, reports are reviewed, recommendations are reviewed. Contacted cardiology on-call, [facility] cardiology, Massimo Pelaez, discussed the patient's history, physical, laboratory studies and imaging studies EKG findings and overall clinical impression. We both agree the patient does not require admission at this time for repeat cardiac restratification. Can add on Ranexa, 500 mg twice daily, cardiology has been accommodating, and has expedited patient's outpatient appointment, to June 08, 2022. I discussed all of this with the patient, and she articulated understanding. On my final reassessment, she is resting comfortably on her stretcher, still having an animated and engaged conversation on her cell phone, mildly anxious, but otherwise, not in any significant distress. Critical care attestation.: If time is entered above; I have spent that time in minutes in the direct care of this critically ill patient, excluding procedure time. ED Disposition Clinical Impression: Chest wall pain Disposition: 01 HOME / SELF CARE / HOMELESS Is pt being admited?: No Does the pt Need Aspirin: No Condition: Good Instructions: Costochondritis Additional Instructions: Please continue current outpatient medications. Symptoms at this point in time most likely coming from the muscles and connective tissue of the chest wall. In discussion with consulting cardiology, we are initiating a medication called Ranexa, which functions in a similar fashion to nitroglycerin, but is a long- acting medication. Please note that the patient's cardiology appointment has been moved up, to June 08, 2022, 1:30 PM, at the [place] office. Please make certain to continue current aspirin and Plavix, and all recently prescribed medications. Consume a low-salt diet, and avoid strenuous physical activity. Please return to the emergency room right away with new pain, worsened pain, migration of pain, projectile vomiting, change in mental status, confusion, inability tolerate liquid feeds, new, worsened or different symptoms not present on the initial emergency room evaluation Prescriptions: Ranolazine [Ranexa] 500 mg PO BID #60 tab Referrals: YING PHILLIPS MD [Staff Physician] - 06/08/22 1:30 pm (Located in: [facility] Address: [address], [place] [address] Hours: Open Closes 5PM )
[2022-05-24 11:59] LABS: Basophils # (Auto) 0.1 K/mm3 (0.0-0.1); Basophils % (Auto) 0.5 % (0.0-1.8); Eosinophils # (Auto) 0.2 K/mm3 (0.0-0.4); Eosinophils % (Auto) 2.6 % (0.0-4.3); Hematocrit 39.4 % (30.3-42.9); Hemoglobin 12.4 gm/dl (10.1-14.3); Lymphocytes % (Auto) 21.9 % (13.4-35.0); Mean Corpuscular HGB Conc 32 % (30-34); Mean Corpuscular Volume 70 fl (79-97); Monocytes # (Auto) 0.9 K/mm3 (0.0-0.8); Monocytes % (Auto) 9.8 % (0.0-7.3); Platelet Count 252 K/mm3 (140-440); Red Blood Count 5.59 M/mm3 (3.65-5.03); Red Cell Distribution Width 16.7 % (13.2-15.2)
[2022-05-24 12:06] LABS: Albumin 3.8 g/dL (3.9-5); Calcium 9.4 mg/dL (8.4-10.2)
[2022-05-24 12:07] LABS: INR 0.96 (0.87-1.13)
[2022-05-24 12:08] LABS: Partial Thromboplastin Time 27.9 Sec. (24.2-36.6)
[2022-05-24] MEDS: MORPHINE 4 MG/1 ML INJ IV ONE ×3 (12:08→12:58)
--- NOTE | 2022-05-24 12:23 | XRay Report ---
CHEST 1 VIEW 05/24/2022 11:48 AM INDICATION / CLINICAL INFORMATION: chest pain. COMPARISON: 05/19/2022 FINDINGS: SUPPORT DEVICES: None. HEART / MEDIASTINUM: No significant abnormality. LUNGS / PLEURA: No significant pulmonary or pleural abnormality. No pneumothorax. ADDITIONAL FINDINGS: No significant additional findings. IMPRESSION: 1. No acute findings. Signer Name: Jaime Leija MD Signed: 05/24/2022 12:19 PM Workstation Name: [id number]
[2022-05-24 13:13] VITALS: BP 120/65
--- NOTE | 2022-05-25 13:33 | Electrocardiograph Report ---
[facility] Test Date: 2022-05-24 Test Time: 10:55:59 Pat Name: CAROLEE LOVE Department: Room: Gender: F Manager Quality Improvement: : 1945 Requested By: MELI VINCENT Order Number: [id number] Reading MD: Zee Peraza Measurements Intervals [place] Rate: 76 P: 59 UT: 139 QRS: -50 QRSD: 97 T: -4 QT: 384 QTc: 429 Interpretive Statements Sinus rhythm Ventricular premature complex Left axis deviation Low voltage QRS Compared to ECG 05/20/2022 14:37:13 Ventricular premature complex(es) now present Electronically Signed On 05-25-2022 13:33:42 EDT by Zee Peraza
== END 2022-05-24 16:06 | disposition home or self-care (01) ==
LOC: ED 10:49
DX: R07.89 Other chest pain (principal); I10 Essential (primary) hypertension; E11.9 Type 2 diabetes mellitus without complications; J45.909 Unspecified asthma, uncomplicated; Z88.0 Allergy status to penicillin; Z79.899 Other long term (current) drug therapy
CPT/HCPCS: 36415; 71045; 80053; 84484; 85025; 85610; 85730; 93005; 96374; 99284; J2270